=== PATIENT | female | born 1935 | race Caucasian/White ===

== ENCOUNTER 2021-08-28 11:54 | Emergency (ER) | payer OTHER ==
[2021-08-28 12:31] VITALS: TEMP 98.2; BMI 89.1
[2021-08-28 13:42] LABS: BASO % 0.5 % (0-2.0); EOS % 2.7 % (0-4.5); HEMATOCRIT 41.5 % (32.4-45.2); HEMOGLOBIN 13.8 GM/dL (10.7-15.3); LYMPH % 19.6 % (8-40); MCH 28.1 pg (25.7-33.7); MCHC 33.3 g/dl (32.0-36.0); MEAN CELL VOLUME 84.5 fl (80-96); MEAN PLT VOLUME 9.1 fl (7.5-11.1); MONO % 8.8 % (3.8-10.2); NEUT % 68.4 % (42.8-82.8); PLATELET COUNT 133 10^3/uL (134-434); RBC 4.91 M/mm3 (3.60-5.2); RDW 14.8 % (11.6-15.6); WHITE BLOOD COUNT 6.6 K/mm3 (4.0-10.0)
[2021-08-28 13:49] LABS: INR 0.92 (0.83-1.09); PROTHROMBIN TIME (PATIENT) 10.8 SEC (9.7-13.0)
[2021-08-28 13:52] LABS: ACTIVATED PTT 27.6 SECONDS (25.2-36.5)
[2021-08-28 14:19] LABS: CALCIUM 8.9 mg/dL (8.5-10.1)
[2021-08-28 14:20] LABS: ALBUMIN 2.8 g/dl (3.4-5.0); BLOOD UREA NITROGEN 14.7 mg/dL (7-18)
[2021-08-28 14:23] LABS: CREATININE 0.7 mg/dL (0.55-1.3)
[2021-08-28 14:24] LABS: BILIRUBIN,TOTAL 0.5 mg/dL (0.2-1); TOT PROT 7.1 g/dl (6.4-8.2)
[2021-08-28 17:11] VITALS: BP 178/86; PULSE 86
== END 2021-08-28 17:20 | disposition home or self-care (01) ==
LOC: JER 11:54
DX: K57.90 Diverticulosis of intestine, part unspecified, without perforation or abscess without bleeding (principal)
CPT/HCPCS: 36415; 74177-TC; 80053; 82272; 85025; 85610; 85730; 86850; 86900; 86901; 93005; 93010; 99283-25; C9803; U0003; U0005

== ENCOUNTER 2022-05-20 15:34 | Inpatient (IN) | payer OTHER ==
[2022-05-20 17:45] LABS: VENOUS BASE EXCESS 2.7 mmol/L (-2-2); VENOUS O2 SATURATION 40.3 % (70-80); VENOUS PCO2 46.9 mmHg (38-52); VENOUS PH 7.402 (7.310-7.410)
[2022-05-20] MEDS ORDERED: VANCOMYCIN 1 GM in D5W (PRE-DOCKED) 1,000 MG/250 ML IVPB ONE (17:45)
[2022-05-20] MEDS ORDERED: CEFEPIME HCL/D5W 2 GM/50 ML BAG IVPB ONE (17:45)
[2022-05-20 18:09] LABS: INR 1.32 (0.83-1.09); PROTHROMBIN TIME (PATIENT) 15.2 SEC (9.7-13.0)
[2022-05-20 18:10] LABS: BASO % 0.3 % (0-2.0); EOS % 0.4 % (0-4.5); HEMATOCRIT 41.7 % (32.4-45.2); HEMOGLOBIN 13.5 GM/dL (10.7-15.3); LYMPH % 12.7 % (8-40); MCH 26.6 pg (25.7-33.7); MCHC 32.3 g/dl (32.0-36.0); MEAN CELL VOLUME 82.5 fl (80-96); MEAN PLT VOLUME 9.2 fl (7.5-11.1); MONO % 6.2 % (3.8-10.2); NEUT % 80.4 % (42.8-82.8); PLATELET COUNT 205 10^3/uL (134-434); RBC 5.05 M/mm3 (3.60-5.2); RDW 15.2 % (11.6-15.6)
[2022-05-20 18:12] LABS: ACTIVATED PTT 33.1 SECONDS (25.2-36.5)
[2022-05-20 18:15] LABS: BLOOD UREA NITROGEN 19.2 mg/dL (7-18); CALCIUM 9.7 mg/dL (8.5-10.1)
[2022-05-20 18:16] LABS: ALBUMIN 2.8 g/dl (3.4-5.0)
[2022-05-20 18:18] LABS: CREATININE 0.6 mg/dL (0.55-1.3)
[2022-05-20 18:20] LABS: BILIRUBIN,TOTAL 0.7 mg/dL (0.2-1); TOT PROT 6.9 g/dl (6.4-8.2)
[2022-05-20] MEDS ORDERED: VANCOMYCIN 1 GRAM (PRE-DOCKED) 1,000 MG/250 ML BAG IVPB ONE (20:49)
[2022-05-20 21:22] LABS: EPI CELLS >36 /uL (0-25.1); HYALINE CASTS 35 /uL (0-3.1); URINE APPEARANCE TURBID; URINE BACTERIA >9,000 /uL (0-1359); URINE BILIRUBIN 1+ (NEGATIVE); URINE COLOR ORANGE; URINE GLUCOSE (UA) NEGATIVE (NEGATIVE); URINE KETONE 1+ (NEGATIVE); URINE LEUK ESTERASE 3+ (NEGATIVE); URINE NITRITE POSITIVE (NEGATIVE); URINE PROTEIN 3+ (NEGATIVE); URINE WBC 22398 /uL (0-25.8)
[2022-05-20 22:15] LABS: URINE RBC 10423 /uL (0-23.9); YEAST NEGATIVE (NEGATIVE)
[2022-05-20] MEDS ORDERED: CEFEPIME 2 GM/100 ML BAG IVPB ONE (22:26)
[2022-05-20] MEDS: APIXABAN 5 MG TABLET PO SCH (23:45)
[2022-05-20] MEDS: MEROPENEM 500 MG in DEXTROSE 5%-WATER 100 ML IVPB SCH (23:50)
[2022-05-21] MEDS ORDERED: APIXABAN 5 MG TABLET ONE (03:03)
[2022-05-21] MEDS ORDERED: MEROPENEM 500 MG VIAL (RESTRICTED TO ID) IVPB ONE ×2 (03:03→09:30)
[2022-05-21 05:29] VITALS: BMI 20.3
[2022-05-21 07:10] LABS: BASO % 0.5 % (0-2.0); EOS % 0.4 % (0-4.5); HEMATOCRIT 40.4 % (32.4-45.2); HEMOGLOBIN 13.2 GM/dL (10.7-15.3); LYMPH % 10.3 % (8-40); MCH 26.9 pg (25.7-33.7); MCHC 32.6 g/dl (32.0-36.0); MEAN CELL VOLUME 82.5 fl (80-96); MEAN PLT VOLUME 9.1 fl (7.5-11.1); MONO % 6.2 % (3.8-10.2); NEUT % 82.6 % (42.8-82.8); PLATELET COUNT 206 10^3/uL (134-434); RBC 4.89 M/mm3 (3.60-5.2); RDW 15.4 % (11.6-15.6); WHITE BLOOD COUNT 7.2 K/mm3 (4.0-10.0)
[2022-05-21 07:34] LABS: CALCIUM 9.5 mg/dL (8.5-10.1)
[2022-05-21 07:35] LABS: ALBUMIN 2.6 g/dl (3.4-5.0); BLOOD UREA NITROGEN 21.9 mg/dL (7-18); MAGNESIUM 2.4 mg/dL (1.8-2.4)
[2022-05-21 07:36] LABS: PHOSPHOROUS 3.5 mg/dL (2.5-4.9)
[2022-05-21 07:38] LABS: BILIRUBIN,TOTAL 0.7 mg/dL (0.2-1); CREATININE 0.6 mg/dL (0.55-1.3); TOT PROT 6.3 g/dl (6.4-8.2)
[2022-05-21] MEDS ORDERED: DEXTROSE 5%-WATER 100 ML IVPB ONE (09:30)
[2022-05-21] MEDS: amLODIPine BESYLATE 5 MG TABLET (FP) PO SCH (09:34)
[2022-05-21] MEDS: APIXABAN 5 MG TABLET PO SCH ×2 (09:34→21:20)
[2022-05-21] MEDS: EZETIMIBE 10 MG TABLET (FP) PO SCH (09:34)
[2022-05-21] MEDS: LOSARTAN POTASSIUM 25 MG TABLET PO SCH (09:34)
[2022-05-21] MEDS: MEROPENEM 500 MG in DEXTROSE 5%-WATER 100 ML IVPB SCH (09:35)
[2022-05-21] MEDS ORDERED: ACETAMINOPHEN 325 MG TABLET (FP) PO PRN (14:07)
[2022-05-21] MEDS ORDERED: VANCOMYCIN 1 GM in D5W (PRE-DOCKED) 1,000 MG/250 ML IVPB SCH (20:00)
[2022-05-21] MEDS: DONEPEZIL HCL 10 MG TABLET (FP) PO SCH (21:20)
[2022-05-21] MEDS: VANCOMYCIN 1 GRAM (PRE-DOCKED) 1,000 MG/250 ML BAG IVPB SCH (21:20)
[2022-05-21] MEDS ORDERED: MEROPENEM 500 MG in DEXTROSE 5%-WATER 100 ML IVPB SCH (22:00)
[2022-05-22] MEDS ORDERED: DEXTROSE 5%-WATER 100 ML IVPB ONE (09:37)
[2022-05-22] MEDS: LOSARTAN POTASSIUM 25 MG TABLET PO SCH (09:52)
[2022-05-22] MEDS: APIXABAN 5 MG TABLET PO SCH ×2 (09:52→21:35)
[2022-05-22] MEDS: amLODIPine BESYLATE 5 MG TABLET (FP) PO SCH (09:52)
[2022-05-22] MEDS: CEFTRIAXONE 2 GM in DEXTROSE 5%-WATER 100 ML IVPB SCH (09:52)
[2022-05-22] MEDS: EZETIMIBE 10 MG TABLET (FP) PO SCH (09:52)
[2022-05-22] MEDS: AMINO ACIDS/PROTEIN HYDROLYS 30 ML LIQUID.PKT PO SCH (19:11)
[2022-05-22] MEDS ORDERED: VANCOMYCIN 1 GM in D5W (PRE-DOCKED) 1,000 MG/250 ML IVPB SCH (20:00)
[2022-05-22] MEDS: VANCOMYCIN 1 GRAM (PRE-DOCKED) 1,000 MG/250 ML BAG IVPB SCH (20:34)
[2022-05-22] MEDS: DONEPEZIL HCL 10 MG TABLET (FP) PO SCH (21:35)
[2022-05-23] MEDS: AMINO ACIDS/PROTEIN HYDROLYS 30 ML LIQUID.PKT PO SCH ×2 (08:45→17:02)
[2022-05-23] MEDS ORDERED: DEXTROSE 5%-WATER 100 ML IVPB ONE (10:12)
[2022-05-23] MEDS: amLODIPine BESYLATE 5 MG TABLET (FP) PO SCH (10:17)
[2022-05-23] MEDS: EZETIMIBE 10 MG TABLET (FP) PO SCH (10:17)
[2022-05-23] MEDS: ASCORBIC ACID 500 MG TABLET (FP) PO SCH (10:17)
[2022-05-23] MEDS: MULTIVITAMINS (DAILY MVI) TABLET (FP) PO SCH (10:17)
[2022-05-23] MEDS: APIXABAN 5 MG TABLET PO SCH ×2 (10:17→21:02)
[2022-05-23] MEDS: LOSARTAN POTASSIUM 25 MG TABLET PO SCH (10:17)
[2022-05-23] MEDS: CEFTRIAXONE 2 GM in DEXTROSE 5%-WATER 100 ML IVPB SCH (10:18)
[2022-05-23] MEDS: VANCOMYCIN 1 GRAM (PRE-DOCKED) 1,000 MG/250 ML BAG IVPB SCH (20:52)
[2022-05-23] MEDS: DONEPEZIL HCL 10 MG TABLET (FP) PO SCH (21:02)
[2022-05-24] MEDS: AMINO ACIDS/PROTEIN HYDROLYS 30 ML LIQUID.PKT PO SCH ×2 (08:16→17:12)
[2022-05-24] MEDS ORDERED: DEXTROSE 5%-WATER 100 ML IVPB ONE (09:01)
[2022-05-24] MEDS: CEFTRIAXONE 2 GM in DEXTROSE 5%-WATER 100 ML IVPB SCH (09:15)
[2022-05-24] MEDS: MULTIVITAMINS (DAILY MVI) TABLET (FP) PO SCH (09:16)
[2022-05-24] MEDS: EZETIMIBE 10 MG TABLET (FP) PO SCH (09:16)
[2022-05-24] MEDS: APIXABAN 5 MG TABLET PO SCH ×2 (09:16→22:05)
[2022-05-24] MEDS: ASCORBIC ACID 500 MG TABLET (FP) PO SCH (09:16)
[2022-05-24] MEDS: LOSARTAN POTASSIUM 25 MG TABLET PO SCH (11:46)
[2022-05-24] MEDS: amLODIPine BESYLATE 5 MG TABLET (FP) PO SCH (11:47)
[2022-05-24 17:52] LABS: BASO % 0.2 % (0-2.0); HEMATOCRIT 36.6 % (32.4-45.2); HEMOGLOBIN 11.9 GM/dL (10.7-15.3); LYMPH % 13.4 % (8-40); MCH 26.7 pg (25.7-33.7); MCHC 32.6 g/dl (32.0-36.0); MEAN CELL VOLUME 81.9 fl (80-96); MEAN PLT VOLUME 8.9 fl (7.5-11.1); MONO % 7.5 % (3.8-10.2); NEUT % 77.9 % (42.8-82.8); PLATELET COUNT 209 10^3/uL (134-434); RBC 4.47 M/mm3 (3.60-5.2); WHITE BLOOD COUNT 5.7 K/mm3 (4.0-10.0)
[2022-05-24 18:35] LABS: ALBUMIN 2.2 g/dl (3.4-5.0); BILIRUBIN,TOTAL 0.3 mg/dL (0.2-1); BLOOD UREA NITROGEN 13.2 mg/dL (7-18); CALCIUM 8.3 mg/dL (8.5-10.1); CREATININE 0.5 mg/dL (0.55-1.3); MAGNESIUM 2.1 mg/dL (1.8-2.4); PHOSPHOROUS 2.5 mg/dL (2.5-4.9); TOT PROT 5.4 g/dl (6.4-8.2)
[2022-05-24] MEDS: VANCOMYCIN 1 GRAM (PRE-DOCKED) 1,000 MG/250 ML BAG IVPB SCH (20:42)
[2022-05-24] MEDS: DONEPEZIL HCL 10 MG TABLET (FP) PO SCH (22:05)
[2022-05-25] MEDS: AMINO ACIDS/PROTEIN HYDROLYS 30 ML LIQUID.PKT PO SCH ×2 (08:37→17:05)
[2022-05-25] MEDS ORDERED: DEXTROSE 5%-WATER 100 ML IVPB ONE ×2 (09:11→09:28)
[2022-05-25] MEDS: MULTIVITAMINS (DAILY MVI) TABLET (FP) PO SCH (09:17)
[2022-05-25] MEDS: ASCORBIC ACID 500 MG TABLET (FP) PO SCH (09:17)
[2022-05-25] MEDS: amLODIPine BESYLATE 5 MG TABLET (FP) PO SCH (09:17)
[2022-05-25] MEDS: EZETIMIBE 10 MG TABLET (FP) PO SCH (09:17)
[2022-05-25] MEDS: LOSARTAN POTASSIUM 25 MG TABLET PO SCH (09:17)
[2022-05-25] MEDS: CEFTRIAXONE 2 GM in DEXTROSE 5%-WATER 100 ML IVPB SCH (10:13)
[2022-05-25] MEDS: APIXABAN 5 MG TABLET PO SCH ×3 (11:35→21:16)
[2022-05-25 12:49] LABS: BASO % 0.4 % (0-2.0); HEMATOCRIT 33.6 % (32.4-45.2); HEMOGLOBIN 11.3 GM/dL (10.7-15.3); LYMPH % 27.9 % (8-40); MCH 27.1 pg (25.7-33.7); MCHC 33.5 g/dl (32.0-36.0); MEAN CELL VOLUME 80.8 fl (80-96); MEAN PLT VOLUME 8.7 fl (7.5-11.1); MONO % 9.8 % (3.8-10.2); NEUT % 59.9 % (42.8-82.8); PLATELET COUNT 199 10^3/uL (134-434); RBC 4.16 M/mm3 (3.60-5.2); RDW 15.9 % (11.6-15.6); WHITE BLOOD COUNT 4.4 K/mm3 (4.0-10.0)
[2022-05-25 17:27] LABS: ALBUMIN 2.2 g/dl (3.4-5.0); BILIRUBIN,TOTAL 0.6 mg/dL (0.2-1); BLOOD UREA NITROGEN 10.7 mg/dL (7-18); CALCIUM 8.9 mg/dL (8.5-10.1); CREATININE 0.3 mg/dL (0.55-1.3); MAGNESIUM 2.2 mg/dL (1.8-2.4); PHOSPHOROUS 2.8 mg/dL (2.5-4.9); TOT PROT 5.1 g/dl (6.4-8.2)
[2022-05-25] MEDS: VANCOMYCIN 1 GRAM (PRE-DOCKED) 1,000 MG/250 ML BAG IVPB SCH (21:15)
[2022-05-25] MEDS: DONEPEZIL HCL 10 MG TABLET (FP) PO SCH (21:16)
[2022-05-26] MEDS ORDERED: INSULIN (NOVOLOG) ASPART 100 UNITS/ML 10ML VIAL ONE (06:51)
[2022-05-26] MEDS: AMINO ACIDS/PROTEIN HYDROLYS 30 ML LIQUID.PKT PO SCH ×3 (08:41→17:16)
[2022-05-26] MEDS ORDERED: DEXTROSE 5%-WATER 100 ML IVPB ONE (09:20)
[2022-05-26] MEDS: CEFTRIAXONE 2 GM in DEXTROSE 5%-WATER 100 ML IVPB SCH (09:47)
[2022-05-26] MEDS: MULTIVITAMINS (DAILY MVI) TABLET (FP) PO SCH ×2 (09:48→14:47)
[2022-05-26] MEDS: APIXABAN 5 MG TABLET PO SCH ×3 (09:48→21:45)
[2022-05-26] MEDS: ASCORBIC ACID 500 MG TABLET (FP) PO SCH ×2 (09:48→14:47)
[2022-05-26] MEDS: LOSARTAN POTASSIUM 25 MG TABLET PO SCH ×2 (09:48→14:48)
[2022-05-26] MEDS: EZETIMIBE 10 MG TABLET (FP) PO SCH ×2 (09:48→14:47)
[2022-05-26] MEDS: amLODIPine BESYLATE 5 MG TABLET (FP) PO SCH ×2 (09:48→14:48)
[2022-05-26] MEDS: VANCOMYCIN 1 GRAM (PRE-DOCKED) 1,000 MG/250 ML BAG IVPB SCH (20:00)
[2022-05-26] MEDS: DONEPEZIL HCL 10 MG TABLET (FP) PO SCH (21:45)
[2022-05-27] MEDS: AMINO ACIDS/PROTEIN HYDROLYS 30 ML LIQUID.PKT PO SCH ×2 (08:10→17:11)
[2022-05-27] MEDS ORDERED: REGADENOSON 0.4 MG/5 ML PRE-FILLED SYRINGE IVPUSH ONE ×2 (09:24→09:45)
[2022-05-27] MEDS ORDERED: APIXABAN 5 MG TABLET PO SCH (10:18)
[2022-05-27] MEDS: LOSARTAN POTASSIUM 25 MG TABLET PO SCH (11:01)
[2022-05-27] MEDS: amLODIPine BESYLATE 5 MG TABLET (FP) PO SCH (11:01)
[2022-05-27] MEDS: ASCORBIC ACID 500 MG TABLET (FP) PO SCH (11:01)
[2022-05-27] MEDS: EZETIMIBE 10 MG TABLET (FP) PO SCH (11:01)
[2022-05-27] MEDS: MULTIVITAMINS (DAILY MVI) TABLET (FP) PO SCH (11:01)
[2022-05-27] MEDS: CEFTRIAXONE 2 GM in DEXTROSE 5%-WATER 100 ML IVPB SCH (11:04)
[2022-05-27] MEDS ORDERED: DEXTROSE 5%-WATER 100 ML IVPB ONE (21:25)
[2022-05-27] MEDS ORDERED: CEFEPIME HCL 1 GM VIAL (RESTRICTED TO ID) ONE (21:25)
[2022-05-27] MEDS: VANCOMYCIN 1 GRAM (PRE-DOCKED) 1,000 MG/250 ML BAG IVPB SCH (21:36)
[2022-05-27] MEDS: CEFEPIME 1 GM in DEXTROSE 5%-WATER 1 GM/100 ML BAG IVPB SCH (23:05)
[2022-05-27] MEDS: DONEPEZIL HCL 10 MG TABLET (FP) PO SCH (23:05)
[2022-05-28] MEDS ORDERED: CEFEPIME HCL 1 GM VIAL (RESTRICTED TO ID) ONE ×2 (09:08→21:37)
[2022-05-28] MEDS ORDERED: DEXTROSE 5%-WATER 100 ML IVPB ONE ×2 (09:08→21:37)
[2022-05-28] MEDS: LOSARTAN POTASSIUM 25 MG TABLET PO SCH (09:10)
[2022-05-28] MEDS: CEFEPIME 1 GM in DEXTROSE 5%-WATER 1 GM/100 ML BAG IVPB SCH ×2 (09:10→21:46)
[2022-05-28] MEDS: amLODIPine BESYLATE 5 MG TABLET (FP) PO SCH (09:10)
[2022-05-28] MEDS: ASCORBIC ACID 500 MG TABLET (FP) PO SCH (09:12)
[2022-05-28] MEDS: MULTIVITAMINS (DAILY MVI) TABLET (FP) PO SCH (09:12)
[2022-05-28] MEDS: EZETIMIBE 10 MG TABLET (FP) PO SCH (09:12)
[2022-05-28] MEDS: AMINO ACIDS/PROTEIN HYDROLYS 30 ML LIQUID.PKT PO SCH ×2 (09:12→17:42)
[2022-05-28] MEDS ORDERED: LIDOCAINE HCL 1%, 10 MG/ML (20ML VIAL) ONE (18:04)
[2022-05-28] MEDS ORDERED: HEPARIN NA (PORCINE) 5,000 UNITS/ML 1ML VIAL ONE (18:05)
[2022-05-28] MEDS ORDERED: MIDAZOLAM HCL 2 MG/2 ML SINGLE DOSE VIAL ONE (18:32)
[2022-05-28] MEDS ORDERED: LIDOCAINE HCL 1%, 10 MG/ML (20ML VIAL) NR ONE (18:49)
[2022-05-28] MEDS ORDERED: ONDANSETRON 4 MG/2 ML VIAL IVPUSH PRN ×2 (19:17→20:28)
[2022-05-28] MEDS ORDERED: LACTATED RINGERS SOLUTION 1,000 ML IV SCH ×2 (19:30→20:28)
[2022-05-28] MEDS ORDERED: ACETAMINOPHEN 325 MG TABLET (FP) PO PRN (20:28)
[2022-05-28] MEDS: VANCOMYCIN 1 GRAM (PRE-DOCKED) 1,000 MG/250 ML BAG IVPB SCH (21:04)
[2022-05-28] MEDS: DONEPEZIL HCL 10 MG TABLET (FP) PO SCH (21:46)
[2022-05-29] MEDS: AMINO ACIDS/PROTEIN HYDROLYS 30 ML LIQUID.PKT PO SCH ×3 (08:17→17:40)
[2022-05-29] MEDS ORDERED: DEXTROSE 5%-WATER 100 ML IVPB ONE ×2 (09:02→21:12)
[2022-05-29] MEDS ORDERED: CEFEPIME HCL 1 GM VIAL (RESTRICTED TO ID) ONE ×2 (09:02→21:12)
[2022-05-29] MEDS: CEFEPIME 1 GM in DEXTROSE 5%-WATER 1 GM/100 ML BAG IVPB SCH ×2 (09:05→21:19)
[2022-05-29] MEDS: APIXABAN 2.5 MG TABLET PO SCH ×3 (09:05→21:40)
[2022-05-29] MEDS: ASCORBIC ACID 500 MG TABLET (FP) PO SCH (09:05)
[2022-05-29] MEDS: amLODIPine BESYLATE 5 MG TABLET (FP) PO SCH (09:05)
[2022-05-29] MEDS: EZETIMIBE 10 MG TABLET (FP) PO SCH (09:05)
[2022-05-29] MEDS: LOSARTAN POTASSIUM 25 MG TABLET PO SCH (09:05)
[2022-05-29] MEDS: MULTIVITAMINS (DAILY MVI) TABLET (FP) PO SCH (09:05)
[2022-05-29 12:01] LABS: BASO % 0.6 % (0-2.0); EOS % 2.4 % (0-4.5); HEMATOCRIT 34.9 % (32.4-45.2); HEMOGLOBIN 11.7 GM/dL (10.7-15.3); LYMPH % 20.9 % (8-40); MCH 27.3 pg (25.7-33.7); MCHC 33.5 g/dl (32.0-36.0); MEAN CELL VOLUME 81.5 fl (80-96); MEAN PLT VOLUME 8.5 fl (7.5-11.1); MONO % 8.2 % (3.8-10.2); NEUT % 67.9 % (42.8-82.8); PLATELET COUNT 202 10^3/uL (134-434); RBC 4.28 M/mm3 (3.60-5.2); RDW 16.1 % (11.6-15.6); WHITE BLOOD COUNT 4.3 K/mm3 (4.0-10.0)
[2022-05-29 12:44] LABS: CALCIUM 8.5 mg/dL (8.5-10.1)
[2022-05-29 12:45] LABS: BLOOD UREA NITROGEN 7.6 mg/dL (7-18)
[2022-05-29 12:46] LABS: CREATININE 0.3 mg/dL (0.55-1.3)
[2022-05-29 12:48] LABS: PHOSPHOROUS 3.1 mg/dL (2.5-4.9)
[2022-05-29] MEDS: DONEPEZIL HCL 10 MG TABLET (FP) PO SCH ×2 (21:19→21:41)
[2022-05-29] MEDS: VANCOMYCIN 1 GRAM (PRE-DOCKED) 1,000 MG/250 ML BAG IVPB SCH (21:40)
[2022-05-30] MEDS ORDERED: CEFEPIME HCL 1 GM VIAL (RESTRICTED TO ID) ONE ×2 (09:11→23:11)
[2022-05-30] MEDS ORDERED: DEXTROSE 5%-WATER 100 ML IVPB ONE ×2 (09:11→23:11)
[2022-05-30] MEDS: CEFEPIME 1 GM in DEXTROSE 5%-WATER 1 GM/100 ML BAG IVPB SCH ×2 (10:12→23:12)
[2022-05-30] MEDS: MULTIVITAMINS (DAILY MVI) TABLET (FP) PO SCH (10:16)
[2022-05-30] MEDS: AMINO ACIDS/PROTEIN HYDROLYS 30 ML LIQUID.PKT PO SCH ×2 (10:16→18:10)
[2022-05-30] MEDS: ASCORBIC ACID 500 MG TABLET (FP) PO SCH (10:17)
[2022-05-30] MEDS: LOSARTAN POTASSIUM 25 MG TABLET PO SCH (10:17)
[2022-05-30] MEDS: EZETIMIBE 10 MG TABLET (FP) PO SCH (10:17)
[2022-05-30] MEDS: APIXABAN 2.5 MG TABLET PO SCH ×2 (10:17→21:15)
[2022-05-30] MEDS: amLODIPine BESYLATE 5 MG TABLET (FP) PO SCH (10:17)
[2022-05-30] MEDS ORDERED: VANCOMYCIN/WATER FOR INJ (PEG) 1,000 MG/250 ML BAG IVPB SCH (20:52)
[2022-05-30] MEDS: DONEPEZIL HCL 10 MG TABLET (FP) PO SCH (21:15)
[2022-05-30] MEDS: VANCOMYCIN/WATER FOR INJ (PEG) 1,000 MG/200 ML BAG IVPB SCH (21:15)
[2022-05-31] MEDS ORDERED: DEXTROSE 5%-WATER 100 ML IVPB ONE (08:56)
[2022-05-31] MEDS ORDERED: CEFEPIME HCL 1 GM VIAL (RESTRICTED TO ID) ONE (08:56)
[2022-05-31] MEDS: ASCORBIC ACID 500 MG TABLET (FP) PO SCH (09:42)
[2022-05-31] MEDS: APIXABAN 2.5 MG TABLET PO SCH ×2 (09:42→22:23)
[2022-05-31] MEDS: AMINO ACIDS/PROTEIN HYDROLYS 30 ML LIQUID.PKT PO SCH ×2 (09:42→17:59)
[2022-05-31] MEDS: LOSARTAN POTASSIUM 25 MG TABLET PO SCH (09:42)
[2022-05-31] MEDS: EZETIMIBE 10 MG TABLET (FP) PO SCH (09:42)
[2022-05-31] MEDS: MULTIVITAMINS (DAILY MVI) TABLET (FP) PO SCH (09:42)
[2022-05-31] MEDS: CEFEPIME 1 GM in DEXTROSE 5%-WATER 1 GM/100 ML BAG IVPB SCH (09:43)
[2022-05-31] MEDS: amLODIPine BESYLATE 5 MG TABLET (FP) PO SCH (09:43)
[2022-05-31] MEDS: VANCOMYCIN/WATER FOR INJ (PEG) 1,000 MG/200 ML BAG IVPB SCH (22:20)
[2022-05-31] MEDS: DONEPEZIL HCL 10 MG TABLET (FP) PO SCH (22:23)
[2022-06-01] MEDS ORDERED: CEFEPIME HCL 1 GM VIAL (RESTRICTED TO ID) ONE ×3 (00:16→22:13)
[2022-06-01] MEDS ORDERED: DEXTROSE 5%-WATER 100 ML IVPB ONE ×3 (00:16→22:13)
[2022-06-01] MEDS: CEFEPIME 1 GM in DEXTROSE 5%-WATER 1 GM/100 ML BAG IVPB SCH ×3 (00:19→22:19)
[2022-06-01] MEDS: VANCOMYCIN 1 GRAM (PRE-DOCKED) 1,000 MG/250 ML BAG IVPB SCH (07:14)
[2022-06-01] MEDS: AMINO ACIDS/PROTEIN HYDROLYS 30 ML LIQUID.PKT PO SCH ×3 (08:40→17:31)
[2022-06-01] MEDS: APIXABAN 2.5 MG TABLET PO SCH ×2 (10:44→22:23)
[2022-06-01] MEDS: ASCORBIC ACID 500 MG TABLET (FP) PO SCH (10:44)
[2022-06-01] MEDS: amLODIPine BESYLATE 5 MG TABLET (FP) PO SCH (10:44)
[2022-06-01] MEDS: LOSARTAN POTASSIUM 25 MG TABLET PO SCH (10:44)
[2022-06-01] MEDS: EZETIMIBE 10 MG TABLET (FP) PO SCH (10:44)
[2022-06-01] MEDS: MULTIVITAMINS (DAILY MVI) TABLET (FP) PO SCH (10:44)
[2022-06-01] MEDS: DONEPEZIL HCL 10 MG TABLET (FP) PO SCH (22:23)
[2022-06-01] MEDS: VANCOMYCIN/WATER FOR INJ (PEG) 1,000 MG/200 ML BAG IVPB SCH (22:23)
[2022-06-02] MEDS: AMINO ACIDS/PROTEIN HYDROLYS 30 ML LIQUID.PKT PO SCH ×2 (07:09→16:48)
[2022-06-02] MEDS ORDERED: DEXTROSE 5%-WATER 100 ML IVPB ONE ×2 (09:20→21:09)
[2022-06-02] MEDS ORDERED: CEFEPIME HCL 1 GM VIAL (RESTRICTED TO ID) ONE ×2 (09:20→21:08)
[2022-06-02] MEDS: CEFEPIME 1 GM in DEXTROSE 5%-WATER 1 GM/100 ML BAG IVPB SCH ×2 (09:24→21:34)
[2022-06-02] MEDS: amLODIPine BESYLATE 5 MG TABLET (FP) PO SCH ×2 (09:25→10:03)
[2022-06-02] MEDS: LOSARTAN POTASSIUM 25 MG TABLET PO SCH ×2 (09:25→10:03)
[2022-06-02] MEDS: MULTIVITAMINS (DAILY MVI) TABLET (FP) PO SCH (10:02)
[2022-06-02] MEDS: EZETIMIBE 10 MG TABLET (FP) PO SCH (10:02)
[2022-06-02] MEDS: ASCORBIC ACID 500 MG TABLET (FP) PO SCH (10:02)
[2022-06-02 11:01] LABS: HEMATOCRIT 36.1 % (32.4-45.2); HEMOGLOBIN 11.8 GM/dL (10.7-15.3); MCH 26.8 pg (25.7-33.7); MCHC 32.6 g/dl (32.0-36.0); MEAN CELL VOLUME 82.3 fl (80-96); MEAN PLT VOLUME 9.1 fl (7.5-11.1); PLATELET COUNT 165 10^3/uL (134-434); RBC 4.39 M/mm3 (3.60-5.2); RDW 16.4 % (11.6-15.6); WHITE BLOOD COUNT 4.5 K/mm3 (4.0-10.0)
[2022-06-02 11:46] LABS: ANISOCYTOSIS 0; HELMET CELLS 0; HOWELL-JOLLY BODIES 0; MACROCYTOSIS 0; OVALOCYTE 0; ROULEAU 0; SICKELED CELLS 0; TARGET CELLS 0; TEAR DROP CELLS 0; TOXIC GRANULATION 0
[2022-06-02 13:18] LABS: CALCIUM 8.4 mg/dL (8.5-10.1)
[2022-06-02 13:19] LABS: BLOOD UREA NITROGEN 5.3 mg/dL (7-18); MAGNESIUM 2.1 mg/dL (1.8-2.4); PHOSPHOROUS 2.6 mg/dL (2.5-4.9)
[2022-06-02 13:22] LABS: CREATININE 0.3 mg/dL (0.55-1.3)
[2022-06-02] MEDS: KCL 10 MEQ IVPB 10 MEQ/100 ML INFUS.BAG IVPB SCH ×3 (13:45→15:12)
[2022-06-02] MEDS ORDERED: GENTAMICIN SO4 80 MG/2 ML VIAL ONE (15:31)
[2022-06-02] MEDS ORDERED: LIDOCAINE HCL 2% (20ML MULTI-DOSE VIAL) ONE (15:31)
[2022-06-02] MEDS ORDERED: PROPOFOL 20 ML ONE ×2 (16:10→16:59)
[2022-06-02] MEDS ORDERED: VANCOMYCIN 1,000 MG VIAL (RESTRICTED TO ID ONLY) ONE ×2 (16:27→16:50)
[2022-06-02] MEDS ORDERED: LACTATED RINGERS SOLUTION 1,000 ML IV SCH (18:00)
[2022-06-02] MEDS ORDERED: VANCOMYCIN/WATER FOR INJ (PEG) 1,000 MG/200 ML BAG IVPB SCH (19:00)
[2022-06-02] MEDS: LACTATED RINGERS SOLUTION 1,000 ML IV SCH (20:10)
[2022-06-02] MEDS: VANCOMYCIN/WATER FOR INJ (PEG) 1,000 MG/200 ML BAG IVPB SCH (20:45)
[2022-06-02] MEDS: DONEPEZIL HCL 10 MG TABLET (FP) PO SCH (21:17)
[2022-06-02] MEDS: APIXABAN 2.5 MG TABLET PO SCH (21:17)
[2022-06-03] MEDS: LACTATED RINGERS SOLUTION 1,000 ML IV SCH ×3 (06:05→21:25)
[2022-06-03 09:44] LABS: BASO % 0.3 % (0-2.0); EOS % 0.3 % (0-4.5); HEMATOCRIT 29.2 % (32.4-45.2); HEMOGLOBIN 9.6 GM/dL (10.7-15.3); LYMPH % 18.4 % (8-40); MCH 27.2 pg (25.7-33.7); MEAN CELL VOLUME 82.7 fl (80-96); MEAN PLT VOLUME 9.7 fl (7.5-11.1); MONO % 6.7 % (3.8-10.2); NEUT % 74.3 % (42.8-82.8); PLATELET COUNT 155 10^3/uL (134-434); RBC 3.53 M/mm3 (3.60-5.2); RDW 16.7 % (11.6-15.6); WHITE BLOOD COUNT 6.8 K/mm3 (4.0-10.0)
[2022-06-03 10:09] LABS: CALCIUM 8.4 mg/dL (8.5-10.1); MAGNESIUM 1.8 mg/dL (1.8-2.4)
[2022-06-03 10:11] LABS: CREATININE 0.3 mg/dL (0.55-1.3); PHOSPHOROUS 2.8 mg/dL (2.5-4.9)
[2022-06-03] MEDS: AMINO ACIDS/PROTEIN HYDROLYS 30 ML LIQUID.PKT PO SCH ×2 (14:30→18:06)
[2022-06-03] MEDS: LOSARTAN POTASSIUM 25 MG TABLET PO SCH (14:31)
[2022-06-03] MEDS: APIXABAN 2.5 MG TABLET PO SCH ×2 (14:31→21:16)
[2022-06-03] MEDS: amLODIPine BESYLATE 5 MG TABLET (FP) PO SCH (14:31)
[2022-06-03] MEDS: EZETIMIBE 10 MG TABLET (FP) PO SCH (14:31)
[2022-06-03] MEDS: ASCORBIC ACID 500 MG TABLET (FP) PO SCH (14:31)
[2022-06-03] MEDS: MULTIVITAMINS (DAILY MVI) TABLET (FP) PO SCH (14:32)
[2022-06-03] MEDS ORDERED: DEXTROSE 5%-WATER 100 ML IVPB ONE ×2 (14:39→22:12)
[2022-06-03] MEDS ORDERED: CEFEPIME HCL 1 GM VIAL (RESTRICTED TO ID) ONE ×2 (14:39→22:12)
[2022-06-03] MEDS: CEFEPIME 1 GM in DEXTROSE 5%-WATER 1 GM/100 ML BAG IVPB SCH ×2 (14:41→22:54)
[2022-06-03] MEDS: VANCOMYCIN/WATER FOR INJ (PEG) 1,000 MG/200 ML BAG IVPB SCH (21:15)
[2022-06-03] MEDS: DONEPEZIL HCL 10 MG TABLET (FP) PO SCH (21:16)
[2022-06-04] MEDS: AMINO ACIDS/PROTEIN HYDROLYS 30 ML LIQUID.PKT PO SCH ×3 (09:15→16:43)
[2022-06-04 09:16] LABS: BLOOD UREA NITROGEN 6.9 mg/dL (7-18); CALCIUM 8.3 mg/dL (8.5-10.1); MAGNESIUM 1.8 mg/dL (1.8-2.4)
[2022-06-04] MEDS ORDERED: DEXTROSE 5%-WATER 100 ML IVPB ONE ×2 (09:19→20:40)
[2022-06-04] MEDS ORDERED: CEFEPIME HCL 1 GM VIAL (RESTRICTED TO ID) ONE ×2 (09:19→20:40)
[2022-06-04 09:20] LABS: CREATININE 0.2 mg/dL (0.55-1.3); PHOSPHOROUS 2.3 mg/dL (2.5-4.9)
[2022-06-04 09:28] LABS: BASO % 0.3 % (0-2.0); EOS % 1.3 % (0-4.5); HEMATOCRIT 25.4 % (32.4-45.2); HEMOGLOBIN 8.2 GM/dL (10.7-15.3); LYMPH % 28.8 % (8-40); MCH 26.8 pg (25.7-33.7); MCHC 32.4 g/dl (32.0-36.0); MEAN CELL VOLUME 82.5 fl (80-96); MEAN PLT VOLUME 9.1 fl (7.5-11.1); MONO % 10.2 % (3.8-10.2); NEUT % 59.4 % (42.8-82.8); PLATELET COUNT 137 10^3/uL (134-434); RBC 3.08 M/mm3 (3.60-5.2); RDW 16.3 % (11.6-15.6); WHITE BLOOD COUNT 4.8 K/mm3 (4.0-10.0)
[2022-06-04] MEDS: CEFEPIME 1 GM in DEXTROSE 5%-WATER 1 GM/100 ML BAG IVPB SCH ×2 (09:30→22:37)
[2022-06-04] MEDS: LOSARTAN POTASSIUM 25 MG TABLET PO SCH ×2 (09:30→10:15)
[2022-06-04] MEDS: ASCORBIC ACID 500 MG TABLET (FP) PO SCH ×2 (09:30→10:17)
[2022-06-04] MEDS: APIXABAN 2.5 MG TABLET PO SCH ×4 (09:30→21:08)
[2022-06-04] MEDS: amLODIPine BESYLATE 5 MG TABLET (FP) PO SCH ×2 (09:31→10:16)
[2022-06-04] MEDS: MULTIVITAMINS (DAILY MVI) TABLET (FP) PO SCH ×2 (09:31→10:16)
[2022-06-04] MEDS: EZETIMIBE 10 MG TABLET (FP) PO SCH ×2 (09:31→10:18)
[2022-06-04] MEDS ORDERED: POTASSIUM PHOSPHATE 30 MM in SODIUM CHLORIDE 500 ML IVPB ONE (11:30)
[2022-06-04] MEDS: KCL 10 MEQ IVPB 10 MEQ/100 ML INFUS.BAG IVPB SCH ×3 (11:56→13:29)
[2022-06-04] MEDS: LACTATED RINGERS SOLUTION 1,000 ML/1,000 ML INFUS.BAG IV SCH (12:09)
[2022-06-04] MEDS: VANCOMYCIN/WATER FOR INJ (PEG) 1,000 MG/200 ML BAG IVPB SCH (20:44)
[2022-06-04] MEDS: LACTATED RINGERS SOLUTION 1,000 ML IV SCH (20:44)
[2022-06-04] MEDS: DONEPEZIL HCL 10 MG TABLET (FP) PO SCH ×2 (21:06→21:08)
[2022-06-05] MEDS: LACTATED RINGERS SOLUTION 1,000 ML/1,000 ML INFUS.BAG IV SCH ×2 (05:41→10:21)
[2022-06-05 06:00] LABS: EPI CELLS 8 /uL (0-25.1); HYALINE CASTS 1 /uL (0-3.1); PH,URINE 5.5 (5.0-8.0); URINE APPEARANCE CLOUDY; URINE BACTERIA 9 /uL (0-1359); URINE BILIRUBIN NEGATIVE (NEGATIVE); URINE COLOR YELLOW; URINE GLUCOSE (UA) NEGATIVE (NEGATIVE); URINE KETONE 2+ (NEGATIVE); URINE LEUK ESTERASE 1+ (NEGATIVE); URINE NITRITE NEGATIVE (NEGATIVE); URINE PROTEIN NEGATIVE (NEGATIVE); URINE RBC 7 /uL (0-23.9); URINE UROBILINOGEN 0.2 mg/dL (0.2-1.0); URINE WBC 10 /uL (0-25.8)
[2022-06-05 07:45] LABS: URINE CRYSTALS NEGATIVE /hpf; YEAST NEGATIVE (NEGATIVE)
[2022-06-05] MEDS: AMINO ACIDS/PROTEIN HYDROLYS 30 ML LIQUID.PKT PO SCH ×2 (08:28→17:21)
[2022-06-05] MEDS ORDERED: DEXTROSE 5%-WATER 100 ML IVPB ONE ×2 (09:19→22:07)
[2022-06-05] MEDS ORDERED: CEFEPIME HCL 1 GM VIAL (RESTRICTED TO ID) ONE ×2 (09:19→22:07)
[2022-06-05] MEDS: ASCORBIC ACID 500 MG TABLET (FP) PO SCH (09:29)
[2022-06-05] MEDS: amLODIPine BESYLATE 5 MG TABLET (FP) PO SCH (09:29)
[2022-06-05] MEDS: APIXABAN 2.5 MG TABLET PO SCH ×2 (09:29→21:56)
[2022-06-05] MEDS: CEFEPIME 1 GM in DEXTROSE 5%-WATER 1 GM/100 ML BAG IVPB SCH ×2 (09:30→22:57)
[2022-06-05] MEDS: MULTIVITAMINS (DAILY MVI) TABLET (FP) PO SCH (09:30)
[2022-06-05] MEDS: EZETIMIBE 10 MG TABLET (FP) PO SCH (09:30)
[2022-06-05] MEDS: LOSARTAN POTASSIUM 25 MG TABLET PO SCH (09:30)
[2022-06-05 10:41] LABS: BASO % 0.3 % (0-2.0); EOS % 2.9 % (0-4.5); HEMATOCRIT 25.1 % (32.4-45.2); HEMOGLOBIN 8.2 GM/dL (10.7-15.3); LYMPH % 22.2 % (8-40); MCH 27.3 pg (25.7-33.7); MCHC 32.8 g/dl (32.0-36.0); MEAN CELL VOLUME 83.4 fl (80-96); MEAN PLT VOLUME 9.4 fl (7.5-11.1); MONO % 9.9 % (3.8-10.2); NEUT % 64.7 % (42.8-82.8); PLATELET COUNT 125 10^3/uL (134-434); RBC 3.01 M/mm3 (3.60-5.2); RDW 16.5 % (11.6-15.6)
[2022-06-05 11:06] LABS: CALCIUM 7.8 mg/dL (8.5-10.1)
[2022-06-05 11:07] LABS: BLOOD UREA NITROGEN 4.1 mg/dL (7-18); MAGNESIUM 1.6 mg/dL (1.8-2.4)
[2022-06-05 11:10] LABS: CREATININE 0.2 mg/dL (0.55-1.3); PHOSPHOROUS 2.3 mg/dL (2.5-4.9)
[2022-06-05] MEDS ORDERED: MAGNESIUM SULF 50% (8.12 MEQ/2 ML-1 GM VIAL) IVPB ONE (11:11)
[2022-06-05] MEDS ORDERED: POTASSIUM PHOSPHATE 30 MM in SODIUM CHLORIDE 500 ML IVPB ONE (11:11)
[2022-06-05] MEDS: VANCOMYCIN/WATER FOR INJ (PEG) 1,000 MG/200 ML BAG IVPB SCH (21:56)
[2022-06-05] MEDS: DONEPEZIL HCL 10 MG TABLET (FP) PO SCH (21:56)
[2022-06-06] MEDS: LACTATED RINGERS SOLUTION 1,000 ML/1,000 ML INFUS.BAG IV SCH ×2 (06:11→11:11)
[2022-06-06] MEDS ORDERED: DEXTROSE 5%-WATER 100 ML IVPB ONE ×2 (09:31→21:34)
[2022-06-06] MEDS ORDERED: CEFEPIME HCL 1 GM VIAL (RESTRICTED TO ID) ONE ×2 (09:31→21:34)
[2022-06-06] MEDS: MULTIVITAMINS (DAILY MVI) TABLET (FP) PO SCH (09:36)
[2022-06-06] MEDS: CEFEPIME 1 GM in DEXTROSE 5%-WATER 1 GM/100 ML BAG IVPB SCH ×2 (09:36→23:00)
[2022-06-06] MEDS: amLODIPine BESYLATE 5 MG TABLET (FP) PO SCH (09:36)
[2022-06-06] MEDS: EZETIMIBE 10 MG TABLET (FP) PO SCH (09:36)
[2022-06-06] MEDS: LOSARTAN POTASSIUM 25 MG TABLET PO SCH (09:36)
[2022-06-06] MEDS: APIXABAN 2.5 MG TABLET PO SCH ×2 (09:36→21:54)
[2022-06-06] MEDS: ASCORBIC ACID 500 MG TABLET (FP) PO SCH (09:37)
[2022-06-06] MEDS: AMINO ACIDS/PROTEIN HYDROLYS 30 ML LIQUID.PKT PO SCH ×2 (09:37→17:23)
[2022-06-06 10:00] LABS: BASO % 0.4 % (0-2.0); HEMATOCRIT 26.4 % (32.4-45.2); HEMOGLOBIN 8.8 GM/dL (10.7-15.3); LYMPH % 31.2 % (8-40); MCH 28.5 pg (25.7-33.7); MCHC 33.4 g/dl (32.0-36.0); MEAN CELL VOLUME 85.3 fl (80-96); MEAN PLT VOLUME 9.2 fl (7.5-11.1); MONO % 10.4 % (3.8-10.2); PLATELET COUNT 145 10^3/uL (134-434); RDW 16.5 % (11.6-15.6); WHITE BLOOD COUNT 4.3 K/mm3 (4.0-10.0)
[2022-06-06 10:10] LABS: BLOOD UREA NITROGEN 3.3 mg/dL (7-18); CALCIUM 8.2 mg/dL (8.5-10.1); MAGNESIUM 2.1 mg/dL (1.8-2.4)
[2022-06-06 10:14] LABS: CREATININE 0.2 mg/dL (0.55-1.3); PHOSPHOROUS 2.4 mg/dL (2.5-4.9)
[2022-06-06] MEDS: VANCOMYCIN/WATER FOR INJ (PEG) 1,000 MG/200 ML BAG IVPB SCH (21:54)
[2022-06-06] MEDS: DONEPEZIL HCL 10 MG TABLET (FP) PO SCH (21:54)
[2022-06-07] MEDS ORDERED: CEFEPIME HCL 1 GM VIAL (RESTRICTED TO ID) ONE ×3 (09:06→21:10)
[2022-06-07] MEDS ORDERED: DEXTROSE 5%-WATER 0 ML IVPB ONE (09:07)
[2022-06-07] MEDS: AMINO ACIDS/PROTEIN HYDROLYS 30 ML LIQUID.PKT PO SCH ×4 (09:11→17:09)
[2022-06-07] MEDS: MULTIVITAMINS (DAILY MVI) TABLET (FP) PO SCH (09:11)
[2022-06-07] MEDS: LOSARTAN POTASSIUM 25 MG TABLET PO SCH (09:11)
[2022-06-07] MEDS: APIXABAN 2.5 MG TABLET PO SCH ×2 (09:11→21:27)
[2022-06-07] MEDS: ASCORBIC ACID 500 MG TABLET (FP) PO SCH (09:12)
[2022-06-07] MEDS: amLODIPine BESYLATE 5 MG TABLET (FP) PO SCH (09:12)
[2022-06-07] MEDS: EZETIMIBE 10 MG TABLET (FP) PO SCH (09:12)
[2022-06-07] MEDS: CEFEPIME 1 GM in DEXTROSE 5%-WATER 1 GM/100 ML BAG IVPB SCH ×2 (09:12→23:00)
[2022-06-07] MEDS: VANCOMYCIN/WATER FOR INJ (PEG) 1,000 MG/200 ML BAG IVPB SCH (21:26)
[2022-06-07] MEDS: DONEPEZIL HCL 10 MG TABLET (FP) PO SCH (21:27)
[2022-06-08] MEDS ORDERED: CEFEPIME HCL 1 GM VIAL (RESTRICTED TO ID) ONE ×2 (09:33→20:59)
[2022-06-08] MEDS ORDERED: DEXTROSE 5%-WATER 100 ML IVPB ONE ×2 (09:34→21:00)
[2022-06-08] MEDS: amLODIPine BESYLATE 5 MG TABLET (FP) PO SCH ×2 (09:52→10:06)
[2022-06-08] MEDS: ASCORBIC ACID 500 MG TABLET (FP) PO SCH ×2 (09:52→10:07)
[2022-06-08] MEDS: MULTIVITAMINS (DAILY MVI) TABLET (FP) PO SCH ×2 (09:52→10:07)
[2022-06-08] MEDS: EZETIMIBE 10 MG TABLET (FP) PO SCH ×2 (09:52→10:07)
[2022-06-08] MEDS: LOSARTAN POTASSIUM 25 MG TABLET PO SCH ×2 (09:52→10:05)
[2022-06-08] MEDS: APIXABAN 2.5 MG TABLET PO SCH ×3 (09:52→21:52)
[2022-06-08] MEDS: CEFEPIME 1 GM in DEXTROSE 5%-WATER 1 GM/100 ML BAG IVPB SCH ×2 (09:53→23:46)
[2022-06-08] MEDS: AMINO ACIDS/PROTEIN HYDROLYS 30 ML LIQUID.PKT PO SCH ×4 (09:53→18:04)
[2022-06-08] MEDS: VANCOMYCIN/WATER FOR INJ (PEG) 1,000 MG/200 ML BAG IVPB SCH (21:48)
[2022-06-08] MEDS: DONEPEZIL HCL 10 MG TABLET (FP) PO SCH (21:52)
[2022-06-09 05:27] VITALS: RESP 18
[2022-06-09] MEDS: AMINO ACIDS/PROTEIN HYDROLYS 30 ML LIQUID.PKT PO SCH ×3 (08:47→17:11)
[2022-06-09 10:08] LABS: BASO % 0.5 % (0-2.0); EOS % 2.1 % (0-4.5); HEMATOCRIT 30.4 % (32.4-45.2); HEMOGLOBIN 10.1 GM/dL (10.7-15.3); LYMPH % 28.4 % (8-40); MCH 28.2 pg (25.7-33.7); MCHC 33.3 g/dl (32.0-36.0); MEAN CELL VOLUME 84.8 fl (80-96); MONO % 12.6 % (3.8-10.2); NEUT % 56.4 % (42.8-82.8); PLATELET COUNT 162 10^3/uL (134-434); RBC 3.58 M/mm3 (3.60-5.2); RDW 17.4 % (11.6-15.6); WHITE BLOOD COUNT 3.8 K/mm3 (4.0-10.0)
[2022-06-09] MEDS ORDERED: CEFEPIME HCL 1 GM VIAL (RESTRICTED TO ID) ONE ×2 (10:08→21:45)
[2022-06-09] MEDS: CEFEPIME 1 GM in DEXTROSE 5%-WATER 1 GM/100 ML BAG IVPB SCH ×2 (10:10→21:47)
[2022-06-09] MEDS: MULTIVITAMINS (DAILY MVI) TABLET (FP) PO SCH (10:12)
[2022-06-09] MEDS: EZETIMIBE 10 MG TABLET (FP) PO SCH (10:12)
[2022-06-09] MEDS: ASCORBIC ACID 500 MG TABLET (FP) PO SCH (10:12)
[2022-06-09] MEDS: APIXABAN 2.5 MG TABLET PO SCH ×2 (10:12→21:14)
[2022-06-09] MEDS: amLODIPine BESYLATE 5 MG TABLET (FP) PO SCH (10:12)
[2022-06-09] MEDS: LOSARTAN POTASSIUM 25 MG TABLET PO SCH (10:13)
[2022-06-09 10:29] LABS: CALCIUM 8.2 mg/dL (8.5-10.1)
[2022-06-09 10:30] LABS: BLOOD UREA NITROGEN 3.2 mg/dL (7-18); MAGNESIUM 1.9 mg/dL (1.8-2.4)
[2022-06-09 10:33] LABS: CREATININE 0.3 mg/dL (0.55-1.3); PHOSPHOROUS 2.5 mg/dL (2.5-4.9)
[2022-06-09] MEDS ORDERED: KCL 10 MEQ IVPB 10 MEQ/100 ML INFUS.BAG IVPB SCH (10:45)
[2022-06-09] MEDS: KCL 10 MEQ IVPB 10 MEQ/100 ML INFUS.BAG IVPB SCH ×3 (12:26→16:18)
[2022-06-09] MEDS: VANCOMYCIN/WATER FOR INJ (PEG) 1,000 MG/200 ML BAG IVPB SCH (20:15)
[2022-06-09] MEDS: DONEPEZIL HCL 10 MG TABLET (FP) PO SCH (21:14)
[2022-06-09] MEDS ORDERED: DEXTROSE 5%-WATER 100 ML IVPB ONE (21:45)
[2022-06-10] MEDS: AMINO ACIDS/PROTEIN HYDROLYS 30 ML LIQUID.PKT PO SCH ×4 (09:03→17:02)
[2022-06-10] MEDS ORDERED: CEFEPIME HCL 1 GM VIAL (RESTRICTED TO ID) ONE ×2 (09:19→21:44)
[2022-06-10] MEDS ORDERED: DEXTROSE 5%-WATER 100 ML IVPB ONE ×2 (09:19→21:44)
[2022-06-10] MEDS: CEFEPIME 1 GM in DEXTROSE 5%-WATER 1 GM/100 ML BAG IVPB SCH ×2 (09:39→22:27)
[2022-06-10] MEDS: amLODIPine BESYLATE 5 MG TABLET (FP) PO SCH ×2 (09:39→10:15)
[2022-06-10] MEDS: ASCORBIC ACID 500 MG TABLET (FP) PO SCH ×2 (09:40→10:15)
[2022-06-10] MEDS: LOSARTAN POTASSIUM 25 MG TABLET PO SCH ×2 (09:40→10:15)
[2022-06-10] MEDS: MULTIVITAMINS (DAILY MVI) TABLET (FP) PO SCH ×2 (09:40→10:15)
[2022-06-10] MEDS: APIXABAN 2.5 MG TABLET PO SCH ×3 (09:40→21:13)
[2022-06-10] MEDS: EZETIMIBE 10 MG TABLET (FP) PO SCH ×2 (09:40→10:15)
[2022-06-10] MEDS: ZINC SULFATE 220 MG CAPSULE (FP) PO SCH ×2 (13:53→14:39)
[2022-06-10] MEDS: ACETAMINOPHEN 325 MG TABLET (FP) PO PRN (14:34)
[2022-06-10] MEDS: VANCOMYCIN/WATER FOR INJ (PEG) 1,000 MG/200 ML BAG IVPB SCH (20:42)
[2022-06-10] MEDS: DONEPEZIL HCL 10 MG TABLET (FP) PO SCH (21:13)
[2022-06-11] MEDS: AMINO ACIDS/PROTEIN HYDROLYS 30 ML LIQUID.PKT PO SCH ×3 (09:10→17:32)
[2022-06-11] MEDS ORDERED: DEXTROSE 5%-WATER 100 ML IVPB ONE (10:08)
[2022-06-11] MEDS ORDERED: CEFEPIME HCL 1 GM VIAL (RESTRICTED TO ID) ONE ×2 (10:08→22:23)
[2022-06-11] MEDS: CEFEPIME 1 GM in DEXTROSE 5%-WATER 1 GM/100 ML BAG IVPB SCH ×2 (10:14→22:27)
[2022-06-11] MEDS: amLODIPine BESYLATE 5 MG TABLET (FP) PO SCH (10:18)
[2022-06-11] MEDS: APIXABAN 2.5 MG TABLET PO SCH ×2 (10:18→21:31)
[2022-06-11] MEDS: LOSARTAN POTASSIUM 25 MG TABLET PO SCH (10:18)
[2022-06-11] MEDS: MULTIVITAMINS (DAILY MVI) TABLET (FP) PO SCH (10:18)
[2022-06-11] MEDS: ASCORBIC ACID 500 MG TABLET (FP) PO SCH (10:19)
[2022-06-11] MEDS: EZETIMIBE 10 MG TABLET (FP) PO SCH (10:19)
[2022-06-11] MEDS: ZINC SULFATE 220 MG CAPSULE (FP) PO SCH (13:53)
[2022-06-11] MEDS: VANCOMYCIN/WATER FOR INJ (PEG) 1,000 MG/200 ML BAG IVPB SCH (20:50)
[2022-06-11] MEDS: DONEPEZIL HCL 10 MG TABLET (FP) PO SCH (21:31)
[2022-06-12] MEDS: AMINO ACIDS/PROTEIN HYDROLYS 30 ML LIQUID.PKT PO SCH ×3 (09:57→18:03)
[2022-06-12] MEDS ORDERED: CEFEPIME HCL 1 GM VIAL (RESTRICTED TO ID) ONE ×2 (11:10→21:09)
[2022-06-12] MEDS: CEFEPIME 1 GM in DEXTROSE 5%-WATER 1 GM/100 ML BAG IVPB SCH ×2 (11:11→22:50)
[2022-06-12] MEDS: APIXABAN 2.5 MG TABLET PO SCH ×2 (11:33→21:29)
[2022-06-12] MEDS: MULTIVITAMINS (DAILY MVI) TABLET (FP) PO SCH (11:33)
[2022-06-12] MEDS: ASCORBIC ACID 500 MG TABLET (FP) PO SCH (11:33)
[2022-06-12] MEDS: LOSARTAN POTASSIUM 25 MG TABLET PO SCH (11:33)
[2022-06-12] MEDS: amLODIPine BESYLATE 5 MG TABLET (FP) PO SCH (11:33)
[2022-06-12] MEDS: EZETIMIBE 10 MG TABLET (FP) PO SCH (11:34)
[2022-06-12] MEDS: ZINC SULFATE 220 MG CAPSULE (FP) PO SCH (14:39)
[2022-06-12] MEDS: VANCOMYCIN/WATER FOR INJ (PEG) 1,000 MG/200 ML BAG IVPB SCH (20:44)
[2022-06-12] MEDS ORDERED: DEXTROSE 5%-WATER 100 ML IVPB ONE (21:09)
[2022-06-12] MEDS: DONEPEZIL HCL 10 MG TABLET (FP) PO SCH (21:29)
[2022-06-13] MEDS: AMINO ACIDS/PROTEIN HYDROLYS 30 ML LIQUID.PKT PO SCH ×3 (08:59→16:49)
[2022-06-13] MEDS ORDERED: DEXTROSE 5%-WATER 100 ML IVPB ONE (09:52)
[2022-06-13] MEDS ORDERED: CEFEPIME HCL 1 GM VIAL (RESTRICTED TO ID) ONE (09:52)
[2022-06-13] MEDS: CEFEPIME 1 GM in DEXTROSE 5%-WATER 1 GM/100 ML BAG IVPB SCH ×2 (09:57→23:00)
[2022-06-13] MEDS: LOSARTAN POTASSIUM 25 MG TABLET PO SCH (09:58)
[2022-06-13] MEDS: APIXABAN 2.5 MG TABLET PO SCH ×2 (09:59→21:46)
[2022-06-13] MEDS: EZETIMIBE 10 MG TABLET (FP) PO SCH ×2 (09:59→10:03)
[2022-06-13] MEDS: amLODIPine BESYLATE 5 MG TABLET (FP) PO SCH (09:59)
[2022-06-13] MEDS: ASCORBIC ACID 500 MG TABLET (FP) PO SCH (10:03)
[2022-06-13] MEDS: MULTIVITAMINS (DAILY MVI) TABLET (FP) PO SCH (10:03)
[2022-06-13] MEDS: ZINC SULFATE 220 MG CAPSULE (FP) PO SCH (13:18)
[2022-06-13] MEDS: VANCOMYCIN/WATER FOR INJ (PEG) 1,000 MG/200 ML BAG IVPB SCH (21:46)
[2022-06-13] MEDS: DONEPEZIL HCL 10 MG TABLET (FP) PO SCH (21:46)
[2022-06-14] MEDS: AMINO ACIDS/PROTEIN HYDROLYS 30 ML LIQUID.PKT PO SCH ×3 (08:21→16:57)
[2022-06-14 08:39] LABS: BASO % 0.6 % (0-2.0); EOS % 1.6 % (0-4.5); HEMATOCRIT 27.9 % (32.4-45.2); HEMOGLOBIN 9.5 GM/dL (10.7-15.3); LYMPH % 37.5 % (8-40); MCH 28.2 pg (25.7-33.7); MEAN CELL VOLUME 82.8 fl (80-96); MEAN PLT VOLUME 8.2 fl (7.5-11.1); MONO % 12.3 % (3.8-10.2); PLATELET COUNT 185 10^3/uL (134-434); RBC 3.36 M/mm3 (3.60-5.2); RDW 17.9 % (11.6-15.6); WHITE BLOOD COUNT 3.5 K/mm3 (4.0-10.0)
[2022-06-14 09:00] LABS: CHLORIDE 107 mmol/L (98-107); SODIUM 143 mmol/L (136-145)
[2022-06-14 09:09] LABS: ALBUMIN 1.8 g/dl (3.4-5.0); CO2 25 mmol/L (21-32); CREATININE 0.2 mg/dL (0.55-1.3); GLUCOSE,RANDOM 90 mg/dL (74-106); SGPT/ALT 12 U/L (13-61)
[2022-06-14 09:10] LABS: TOT PROT 4.7 g/dl (6.4-8.2)
[2022-06-14 09:11] LABS: BILIRUBIN,TOTAL 0.5 mg/dL (0.2-1)
[2022-06-14 09:12] LABS: ALK PHOS 126 U/L (45-117); SGOT/AST 16 U/L (15-37)
[2022-06-14 09:18] LABS: ANION GAP 11 MMOL/L (8-16)
[2022-06-14] MEDS ORDERED: CEFEPIME HCL 1 GM VIAL (RESTRICTED TO ID) ONE (09:26)
[2022-06-14] MEDS ORDERED: DEXTROSE 5%-WATER 100 ML IVPB ONE (09:26)
[2022-06-14] MEDS: CEFEPIME 1 GM in DEXTROSE 5%-WATER 1 GM/100 ML BAG IVPB SCH (09:40)
[2022-06-14] MEDS: LOSARTAN POTASSIUM 25 MG TABLET PO SCH (09:40)
[2022-06-14] MEDS: APIXABAN 2.5 MG TABLET PO SCH ×2 (09:41→21:28)
[2022-06-14] MEDS: EZETIMIBE 10 MG TABLET (FP) PO SCH (09:41)
[2022-06-14] MEDS: ASCORBIC ACID 500 MG TABLET (FP) PO SCH (09:41)
[2022-06-14] MEDS: amLODIPine BESYLATE 5 MG TABLET (FP) PO SCH (09:41)
[2022-06-14] MEDS: MULTIVITAMINS (DAILY MVI) TABLET (FP) PO SCH (09:41)
[2022-06-14] MEDS: ZINC SULFATE 220 MG CAPSULE (FP) PO SCH (13:02)
[2022-06-14] MEDS: DONEPEZIL HCL 10 MG TABLET (FP) PO SCH (21:28)
[2022-06-15] MEDS: AMINO ACIDS/PROTEIN HYDROLYS 30 ML LIQUID.PKT PO SCH ×4 (08:04→17:17)
[2022-06-15] MEDS: MULTIVITAMINS (DAILY MVI) TABLET (FP) PO SCH (08:59)
[2022-06-15] MEDS: amLODIPine BESYLATE 5 MG TABLET (FP) PO SCH (08:59)
[2022-06-15] MEDS: LOSARTAN POTASSIUM 25 MG TABLET PO SCH (08:59)
[2022-06-15] MEDS: APIXABAN 2.5 MG TABLET PO SCH (08:59)
[2022-06-15] MEDS: EZETIMIBE 10 MG TABLET (FP) PO SCH (09:00)
[2022-06-15] MEDS: ASCORBIC ACID 500 MG TABLET (FP) PO SCH (09:00)
[2022-06-15] MEDS: ZINC SULFATE 220 MG CAPSULE (FP) PO SCH (14:12)
[2022-06-16] MEDS: DONEPEZIL HCL 10 MG TABLET (FP) PO SCH ×2 (00:30→21:36)
[2022-06-16] MEDS: AMINO ACIDS/PROTEIN HYDROLYS 30 ML LIQUID.PKT PO SCH ×3 (08:25→17:18)
[2022-06-16 09:18] LABS: BASO % 0.5 % (0-2.0); EOS % 0.7 % (0-4.5); HEMOGLOBIN 9.6 GM/dL (10.7-15.3); LYMPH % 28.8 % (8-40); MCH 28.1 pg (25.7-33.7); MCHC 33.1 g/dl (32.0-36.0); MEAN CELL VOLUME 84.8 fl (80-96); MEAN PLT VOLUME 8.7 fl (7.5-11.1); MONO % 13.4 % (3.8-10.2); NEUT % 56.6 % (42.8-82.8); PLATELET COUNT 177 10^3/uL (134-434); RBC 3.42 M/mm3 (3.60-5.2); RDW 18.8 % (11.6-15.6); WHITE BLOOD COUNT 4.3 K/mm3 (4.0-10.0)
[2022-06-16 09:49] LABS: CALCIUM 8.7 mg/dL (8.5-10.1)
[2022-06-16 09:50] LABS: BLOOD UREA NITROGEN 6.5 mg/dL (7-18)
[2022-06-16 09:53] LABS: CREATININE 0.3 mg/dL (0.55-1.3); PHOSPHOROUS 2.6 mg/dL (2.5-4.9)
[2022-06-16] MEDS: MULTIVITAMINS (DAILY MVI) TABLET (FP) PO SCH (10:59)
[2022-06-16] MEDS: LOSARTAN POTASSIUM 25 MG TABLET PO SCH (10:59)
[2022-06-16] MEDS: amLODIPine BESYLATE 5 MG TABLET (FP) PO SCH (10:59)
[2022-06-16] MEDS: EZETIMIBE 10 MG TABLET (FP) PO SCH (11:00)
[2022-06-16] MEDS: ASCORBIC ACID 500 MG TABLET (FP) PO SCH (11:00)
[2022-06-16] MEDS: KCL 10 MEQ IVPB 10 MEQ/100 ML INFUS.BAG IVPB SCH ×3 (11:41→13:58)
[2022-06-16] MEDS: ZINC SULFATE 220 MG CAPSULE (FP) PO SCH (13:36)
[2022-06-17 05:17] VITALS: TEMP 97.9
[2022-06-17] MEDS: AMINO ACIDS/PROTEIN HYDROLYS 30 ML LIQUID.PKT PO SCH ×2 (08:31→12:15)
[2022-06-17 08:43] VITALS: BP 133/75; PULSE 96
[2022-06-17] MEDS: MULTIVITAMINS (DAILY MVI) TABLET (FP) PO SCH (09:03)
[2022-06-17] MEDS: EZETIMIBE 10 MG TABLET (FP) PO SCH (09:03)
[2022-06-17] MEDS: LOSARTAN POTASSIUM 25 MG TABLET PO SCH (09:04)
[2022-06-17] MEDS: amLODIPine BESYLATE 5 MG TABLET (FP) PO SCH (09:04)
[2022-06-17] MEDS: APIXABAN 2.5 MG TABLET PO SCH (09:04)
[2022-06-17] MEDS: ASCORBIC ACID 500 MG TABLET (FP) PO SCH (09:04)
[2022-06-17] MEDS ORDERED: ACETAMINOPHEN 1000 MG/100 ML BAG IVPB ONE (10:00)
[2022-06-17] MEDS: ACETAMINOPHEN 325 MG TABLET (FP) PO PRN (10:17)
== END 2022-06-17 14:12 | disposition home health service (06) | DRG 463 ==
LOC: JER 15:34 → JERBED 19:17 → J6S 05-21 04:27
PROVIDERS: ADMIT Internal Medicine
PROC: B41DZZZ Fluoroscopy of Aorta and Bilateral Lower Extremity Arteries (ICD-10-PCS; 2022-05-28)
PROC: B40GYZZ Plain Radiography of Left Lower Extremity Arteries using Other Contrast (ICD-10-PCS; 2022-05-28)
PROC: 0QBM0ZZ Excision of Left Tarsal, Open Approach (ICD-10-PCS; 2022-06-02)
PROC: 3E0132A Introduction of Anti-Infective Envelope into Subcutaneous Tissue, Percutaneous Approach (ICD-10-PCS; 2022-06-02)
PROC: 0JBR0ZZ Excision of Left Foot Subcutaneous Tissue and Fascia, Open Approach (ICD-10-PCS; principal; 2022-06-02 14:30)
DX: M86.672 Other chronic osteomyelitis, left ankle and foot (principal); L89.624 Pressure ulcer of left heel, stage 4; R53.2 Functional quadriplegia; N39.0 Urinary tract infection, site not specified; M86.8X7 Other osteomyelitis, ankle and foot; F03.90 Unspecified dementia, unspecified severity, without behavioral disturbance, psychotic disturbance, mood disturbance, and anxiety; N93.9 Abnormal uterine and vaginal bleeding, unspecified; Z86.718 Personal history of other venous thrombosis and embolism; Z79.01 Long term (current) use of anticoagulants; I12.9 Hypertensive chronic kidney disease with stage 1 through stage 4 chronic kidney disease, or unspecified chronic kidney disease; L89.610 Pressure ulcer of right heel, unstageable; N89.8 Other specified noninflammatory disorders of vagina; E78.5 Hyperlipidemia, unspecified; Z88.0 Allergy status to penicillin; I73.9 Peripheral vascular disease, unspecified; N18.9 Chronic kidney disease, unspecified; I48.91 Unspecified atrial fibrillation; R94.31 Abnormal electrocardiogram [ECG] [EKG]; E78.1 Pure hyperglyceridemia; N28.1 Cyst of kidney, acquired; K80.20 Calculus of gallbladder without cholecystitis without obstruction
CPT/HCPCS: 36415; 71045-TC-FY; 73610-TC-LT-FY; 73630-TC-LT; 73718-TC-LT; 75635-TC; 76000-TC-FY; 76775-TC; 78452-TC; 80048; 80053; 81003; 82550; 82553; 82803; 83036; 83605; 83735; 84100; 84484; 85025; 85610; 85651; 85730; 86140; 86850; 86900; 86901; 87040; 87070; 87086; 87186; 87205; 88304-TC; 88311-TC; 93005; 93010; 93017; 93306-TC; 94760; 97161-GP; 99285-25; A9502; C9803-CS; G0480; J1644; J2785; Q9967; U0003; U0005

== ENCOUNTER 2022-10-23 12:45 | Inpatient (IN) | payer OTHER ==
[2022-10-23] MEDS ORDERED: VANCOMYCIN 1 GM in D5W (PRE-DOCKED) 1,000 MG/250 ML IVPB ONE (14:30)
[2022-10-23] MEDS ORDERED: MEROPENEM 1 GM in DEXTROSE 5%-WATER 100 ML IVPB ONE (14:36)
[2022-10-23] MEDS ORDERED: MEROPENEM 1 GM VIAL (RESTRICTED TO ID) IVPB ONE (14:49)
[2022-10-23] MEDS ORDERED: VANCOMYCIN/WATER FOR INJ (PEG) 1,000 MG/200 ML BAG IVPB ONE (14:50)
[2022-10-23] MEDS ORDERED: morphine CARPU-JECT 2 MG/1 ML DISP.SYRIN IVPUSH ONE (15:03)
[2022-10-23 15:39] LABS: BASO % 0.3 % (0-2.0); EOS % 0.2 % (0-4.5); HEMOGLOBIN 11.2 GM/dL (10.7-15.3); LYMPH % 12.3 % (8-40); MCH 27.1 pg (25.7-33.7); MCHC 31.1 g/dl (32.0-36.0); MEAN PLT VOLUME 8.6 fl (7.5-11.1); MONO % 4.4 % (3.8-10.2); NEUT % 82.8 % (42.8-82.8); PLATELET COUNT 395 10^3/uL (134-434); RBC 4.13 M/mm3 (3.60-5.2); RDW 15.3 % (11.6-15.6); WHITE BLOOD COUNT 8.4 K/mm3 (4.0-10.0)
[2022-10-23 15:53] LABS: INR 1.21 (0.83-1.09)
[2022-10-23 15:56] LABS: ACTIVATED PTT 24.4 SECONDS (25.2-36.5)
[2022-10-23 16:08] LABS: CALCIUM 8.9 mg/dL (8.5-10.1)
[2022-10-23 16:10] LABS: ALBUMIN 2.1 g/dl (3.4-5.0); BLOOD UREA NITROGEN 15.2 mg/dL (7-18)
[2022-10-23] MEDS ORDERED: ACETAMINOPHEN 325 MG TABLET (FP) PO PRN (16:11)
[2022-10-23 16:12] LABS: CREATININE 0.5 mg/dL (0.55-1.3)
[2022-10-23 16:14] LABS: BILIRUBIN,TOTAL 0.3 mg/dL (0.2-1); TOT PROT 6.6 g/dl (6.4-8.2)
[2022-10-23 16:33] LABS: ERYTHROCYTE SEDIMENTATION RATE 92 mm/hr (0-30)
[2022-10-23] MEDS: APIXABAN 2.5 MG TABLET PO SCH (22:22)
[2022-10-24] MEDS: amLODIPine BESYLATE 5 MG TABLET (FP) PO SCH (11:34)
[2022-10-24] MEDS: LOSARTAN POTASSIUM 25 MG TABLET PO SCH (11:34)
[2022-10-24] MEDS: APIXABAN 2.5 MG TABLET PO SCH ×2 (11:34→23:47)
[2022-10-24] MEDS: EZETIMIBE 10 MG TABLET (FP) PO SCH (11:35)
[2022-10-24] MEDS: metoPROLOL SUCCINATE 25 MG TAB.SR.24H (FP) PO SCH (11:35)
[2022-10-24 13:55] VITALS: BMI 17.7
[2022-10-24] MEDS: COLLAGENASE CLOSTRIDIUM HIST. 30 GRAMS TUBE TP SCH (14:07)
[2022-10-24] MEDS: AMINO ACIDS/PROTEIN HYDROLYS 30 ML LIQUID.PKT PO SCH (17:55)
[2022-10-24] MEDS: ASCORBIC ACID 250 MG TABLET (FP) PO SCH (23:48)
[2022-10-25] MEDS: AMINO ACIDS/PROTEIN HYDROLYS 30 ML LIQUID.PKT PO SCH ×2 (08:33→17:59)
[2022-10-25] MEDS: MULTIVITAMINS (DAILY MVI) TABLET (FP) PO SCH (09:40)
[2022-10-25] MEDS: APIXABAN 2.5 MG TABLET PO SCH ×2 (09:40→22:09)
[2022-10-25] MEDS: ZINC SULFATE 220 MG CAPSULE (FP) PO SCH (09:40)
[2022-10-25] MEDS: amLODIPine BESYLATE 5 MG TABLET (FP) PO SCH (09:40)
[2022-10-25] MEDS: LOSARTAN POTASSIUM 25 MG TABLET PO SCH (09:40)
[2022-10-25] MEDS: ASCORBIC ACID 250 MG TABLET (FP) PO SCH ×2 (09:41→22:09)
[2022-10-25] MEDS: EZETIMIBE 10 MG TABLET (FP) PO SCH (09:41)
[2022-10-25] MEDS: metoPROLOL SUCCINATE 25 MG TAB.SR.24H (FP) PO SCH (09:41)
[2022-10-25] MEDS: COLLAGENASE CLOSTRIDIUM HIST. 30 GRAMS TUBE TP SCH (10:45)
[2022-10-25] MEDS: CEFEPIME 1 GM in DEXTROSE 5%-WATER 100 ML IVPB SCH ×2 (11:07→18:11)
[2022-10-26] MEDS: CEFEPIME 1 GM in DEXTROSE 5%-WATER 100 ML IVPB SCH ×2 (01:01→11:37)
[2022-10-26] MEDS: AMINO ACIDS/PROTEIN HYDROLYS 30 ML LIQUID.PKT PO SCH ×2 (07:57→18:53)
[2022-10-26] MEDS: COLLAGENASE CLOSTRIDIUM HIST. 30 GRAMS TUBE TP SCH (10:30)
[2022-10-26] MEDS: ASCORBIC ACID 250 MG TABLET (FP) PO SCH ×3 (11:36→22:34)
[2022-10-26] MEDS: APIXABAN 2.5 MG TABLET PO SCH ×3 (11:36→22:34)
[2022-10-26] MEDS: MULTIVITAMINS (DAILY MVI) TABLET (FP) PO SCH (11:36)
[2022-10-26] MEDS: LOSARTAN POTASSIUM 25 MG TABLET PO SCH (11:37)
[2022-10-26] MEDS: amLODIPine BESYLATE 5 MG TABLET (FP) PO SCH (11:37)
[2022-10-26] MEDS: ZINC SULFATE 220 MG CAPSULE (FP) PO SCH (11:37)
[2022-10-26] MEDS: EZETIMIBE 10 MG TABLET (FP) PO SCH (11:38)
[2022-10-26] MEDS: metoPROLOL SUCCINATE 25 MG TAB.SR.24H (FP) PO SCH (11:38)
[2022-10-26] MEDS: DONEPEZIL HCL 10 MG TABLET (FP) PO SCH ×2 (22:25→22:34)
[2022-10-27] MEDS: AMINO ACIDS/PROTEIN HYDROLYS 30 ML LIQUID.PKT PO SCH ×4 (09:40→17:51)
[2022-10-27] MEDS: EZETIMIBE 10 MG TABLET (FP) PO SCH (09:47)
[2022-10-27] MEDS: CEFTRIAXONE 2 GM in DEXTROSE 5%-WATER 100 ML IVPB SCH (09:47)
[2022-10-27] MEDS: APIXABAN 2.5 MG TABLET PO SCH ×2 (09:47→22:02)
[2022-10-27] MEDS: LOSARTAN POTASSIUM 25 MG TABLET PO SCH (09:47)
[2022-10-27] MEDS: amLODIPine BESYLATE 5 MG TABLET (FP) PO SCH (09:47)
[2022-10-27] MEDS: metoPROLOL SUCCINATE 25 MG TAB.SR.24H (FP) PO SCH (11:12)
[2022-10-27] MEDS: ASCORBIC ACID 250 MG TABLET (FP) PO SCH ×2 (11:16→22:03)
[2022-10-27] MEDS: ZINC SULFATE 220 MG CAPSULE (FP) PO SCH (11:16)
[2022-10-27] MEDS: MULTIVITAMINS (DAILY MVI) TABLET (FP) PO SCH (11:16)
[2022-10-27] MEDS: COLLAGENASE CLOSTRIDIUM HIST. 30 GRAMS TUBE TP SCH (13:00)
[2022-10-27] MEDS: DONEPEZIL HCL 10 MG TABLET (FP) PO SCH (22:02)
[2022-10-28] MEDS: AMINO ACIDS/PROTEIN HYDROLYS 30 ML LIQUID.PKT PO SCH ×2 (09:20→17:01)
[2022-10-28] MEDS: EZETIMIBE 10 MG TABLET (FP) PO SCH (12:10)
[2022-10-28] MEDS: LOSARTAN POTASSIUM 25 MG TABLET PO SCH (12:11)
[2022-10-28] MEDS: ZINC SULFATE 220 MG CAPSULE (FP) PO SCH (12:11)
[2022-10-28] MEDS: MULTIVITAMINS (DAILY MVI) TABLET (FP) PO SCH (12:11)
[2022-10-28] MEDS: ASCORBIC ACID 250 MG TABLET (FP) PO SCH ×2 (12:11→21:57)
[2022-10-28] MEDS: APIXABAN 2.5 MG TABLET PO SCH ×2 (12:11→21:57)
[2022-10-28] MEDS: amLODIPine BESYLATE 5 MG TABLET (FP) PO SCH (12:11)
[2022-10-28] MEDS: CEFTRIAXONE 2 GM in DEXTROSE 5%-WATER 100 ML IVPB SCH (12:13)
[2022-10-28] MEDS: metoPROLOL SUCCINATE 25 MG TAB.SR.24H (FP) PO SCH (12:20)
[2022-10-28] MEDS: COLLAGENASE CLOSTRIDIUM HIST. 30 GRAMS TUBE TP SCH (17:01)
[2022-10-28] MEDS: DONEPEZIL HCL 10 MG TABLET (FP) PO SCH (21:57)
[2022-10-29] MEDS: AMINO ACIDS/PROTEIN HYDROLYS 30 ML LIQUID.PKT PO SCH ×2 (08:38→17:08)
[2022-10-29] MEDS: CEFTRIAXONE 2 GM in DEXTROSE 5%-WATER 100 ML IVPB SCH (09:29)
[2022-10-29] MEDS: MULTIVITAMINS (DAILY MVI) TABLET (FP) PO SCH (09:30)
[2022-10-29] MEDS: EZETIMIBE 10 MG TABLET (FP) PO SCH (09:30)
[2022-10-29] MEDS: ASCORBIC ACID 250 MG TABLET (FP) PO SCH ×2 (09:30→22:09)
[2022-10-29] MEDS: ZINC SULFATE 220 MG CAPSULE (FP) PO SCH (09:30)
[2022-10-29] MEDS: amLODIPine BESYLATE 5 MG TABLET (FP) PO SCH (09:30)
[2022-10-29] MEDS: APIXABAN 2.5 MG TABLET PO SCH ×2 (09:31→22:10)
[2022-10-29] MEDS: metoPROLOL SUCCINATE 25 MG TAB.SR.24H (FP) PO SCH (09:31)
[2022-10-29] MEDS: LOSARTAN POTASSIUM 25 MG TABLET PO SCH (09:31)
[2022-10-29] MEDS: COLLAGENASE CLOSTRIDIUM HIST. 30 GRAMS TUBE TP SCH (09:36)
[2022-10-29] MEDS: DONEPEZIL HCL 10 MG TABLET (FP) PO SCH (22:09)
[2022-10-30] MEDS: AMINO ACIDS/PROTEIN HYDROLYS 30 ML LIQUID.PKT PO SCH ×3 (08:15→17:55)
[2022-10-30] MEDS: EZETIMIBE 10 MG TABLET (FP) PO SCH ×2 (10:12→15:36)
[2022-10-30] MEDS: LOSARTAN POTASSIUM 25 MG TABLET PO SCH ×2 (10:12→15:36)
[2022-10-30] MEDS: amLODIPine BESYLATE 5 MG TABLET (FP) PO SCH ×2 (10:12→15:36)
[2022-10-30] MEDS: ZINC SULFATE 220 MG CAPSULE (FP) PO SCH ×2 (10:12→15:35)
[2022-10-30] MEDS: ASCORBIC ACID 250 MG TABLET (FP) PO SCH ×3 (10:12→23:34)
[2022-10-30] MEDS: metoPROLOL SUCCINATE 25 MG TAB.SR.24H (FP) PO SCH ×2 (10:12→15:35)
[2022-10-30] MEDS: MULTIVITAMINS (DAILY MVI) TABLET (FP) PO SCH ×2 (10:12→15:36)
[2022-10-30] MEDS: COLLAGENASE CLOSTRIDIUM HIST. 30 GRAMS TUBE TP SCH (10:12)
[2022-10-30] MEDS: APIXABAN 2.5 MG TABLET PO SCH ×3 (10:12→23:33)
[2022-10-30] MEDS: CEFTRIAXONE 2 GM in DEXTROSE 5%-WATER 100 ML IVPB SCH (10:12)
[2022-10-30 10:32] LABS: BASO % 0.3 % (0-2.0); EOS % 0.3 % (0-4.5); HEMATOCRIT 27.5 % (32.4-45.2); HEMOGLOBIN 8.8 GM/dL (10.7-15.3); LYMPH % 17.2 % (8-40); MCH 27.5 pg (25.7-33.7); MEAN CELL VOLUME 85.9 fl (80-96); MEAN PLT VOLUME 7.8 fl (7.5-11.1); MONO % 8.9 % (3.8-10.2); NEUT % 73.3 % (42.8-82.8); PLATELET COUNT 258 10^3/uL (134-434); RDW 16.3 % (11.6-15.6); WHITE BLOOD COUNT 6.2 K/mm3 (4.0-10.0)
[2022-10-30 11:01] LABS: CALCIUM 8.5 mg/dL (8.5-10.1)
[2022-10-30 11:02] LABS: ALBUMIN 1.7 g/dl (3.4-5.0); BLOOD UREA NITROGEN 10.3 mg/dL (7-18)
[2022-10-30 11:04] LABS: CREATININE 0.4 mg/dL (0.55-1.3)
[2022-10-30 11:06] LABS: BILIRUBIN,TOTAL 0.7 mg/dL (0.2-1); TOT PROT 4.9 g/dl (6.4-8.2)
[2022-10-30 11:31] LABS: ERYTHROCYTE SEDIMENTATION RATE 55 mm/hr (0-30)
[2022-10-30] MEDS ORDERED: ACETAMINOPHEN 1000 MG/100 ML BAG IVPB ONE (16:55)
[2022-10-30] MEDS: DONEPEZIL HCL 10 MG TABLET (FP) PO SCH (23:33)
[2022-10-31] MEDS: AMINO ACIDS/PROTEIN HYDROLYS 30 ML LIQUID.PKT PO SCH ×2 (09:10→17:33)
[2022-10-31] MEDS: LOSARTAN POTASSIUM 25 MG TABLET PO SCH (09:10)
[2022-10-31] MEDS: APIXABAN 2.5 MG TABLET PO SCH ×3 (09:10→22:04)
[2022-10-31] MEDS: amLODIPine BESYLATE 5 MG TABLET (FP) PO SCH ×2 (09:11→12:14)
[2022-10-31] MEDS: MULTIVITAMINS (DAILY MVI) TABLET (FP) PO SCH (09:12)
[2022-10-31] MEDS: metoPROLOL SUCCINATE 25 MG TAB.SR.24H (FP) PO SCH (09:12)
[2022-10-31] MEDS: EZETIMIBE 10 MG TABLET (FP) PO SCH (09:12)
[2022-10-31] MEDS: CEFTRIAXONE 2 GM in DEXTROSE 5%-WATER 100 ML IVPB SCH (09:12)
[2022-10-31] MEDS: ZINC SULFATE 220 MG CAPSULE (FP) PO SCH (09:12)
[2022-10-31] MEDS: ASCORBIC ACID 250 MG TABLET (FP) PO SCH ×2 (09:12→22:04)
[2022-10-31] MEDS: COLLAGENASE CLOSTRIDIUM HIST. 30 GRAMS TUBE TP SCH (09:16)
[2022-10-31 09:47] LABS: BASO % 0.5 % (0-2.0); EOS % 0.5 % (0-4.5); HEMATOCRIT 31.6 % (32.4-45.2); LYMPH % 17.4 % (8-40); MCH 27.4 pg (25.7-33.7); MCHC 31.6 g/dl (32.0-36.0); MEAN CELL VOLUME 86.7 fl (80-96); MEAN PLT VOLUME 8.1 fl (7.5-11.1); MONO % 6.6 % (3.8-10.2); PLATELET COUNT 264 10^3/uL (134-434); RBC 3.64 M/mm3 (3.60-5.2); RDW 16.4 % (11.6-15.6); WHITE BLOOD COUNT 5.1 K/mm3 (4.0-10.0)
[2022-10-31 10:06] LABS: CALCIUM 8.6 mg/dL (8.5-10.1)
[2022-10-31 10:07] LABS: ALBUMIN 1.8 g/dl (3.4-5.0); BLOOD UREA NITROGEN 10.3 mg/dL (7-18)
[2022-10-31 10:10] LABS: CREATININE 0.5 mg/dL (0.55-1.3)
[2022-10-31 10:11] LABS: BILIRUBIN,TOTAL 0.2 mg/dL (0.2-1)
[2022-10-31 10:12] LABS: TOT PROT 5.1 g/dl (6.4-8.2)
[2022-10-31] MEDS ORDERED: CEPHALEXIN 250 MG/5 ML ORAL SUSPENSION PO SCH (10:30)
[2022-10-31] MEDS: CEPHALEXIN 250 MG/5 ML ORAL SUSPENSION PO SCH ×2 (12:14→20:43)
[2022-10-31] MEDS: metroNIDAZOLE 250 MG TABLET PO SCH ×2 (13:09→22:09)
[2022-10-31] MEDS: DONEPEZIL HCL 10 MG TABLET (FP) PO SCH (22:04)
[2022-11-01] MEDS: CEPHALEXIN 250 MG/5 ML ORAL SUSPENSION PO SCH ×3 (03:00→18:39)
[2022-11-01] MEDS: metroNIDAZOLE 250 MG TABLET PO SCH ×3 (06:10→21:57)
[2022-11-01] MEDS: AMINO ACIDS/PROTEIN HYDROLYS 30 ML LIQUID.PKT PO SCH ×2 (08:22→17:29)
[2022-11-01] MEDS: ASCORBIC ACID 250 MG TABLET (FP) PO SCH ×4 (09:52→21:57)
[2022-11-01] MEDS: MULTIVITAMINS (DAILY MVI) TABLET (FP) PO SCH ×3 (09:52→14:06)
[2022-11-01] MEDS: LOSARTAN POTASSIUM 25 MG TABLET PO SCH ×3 (09:53→14:05)
[2022-11-01] MEDS: ZINC SULFATE 220 MG CAPSULE (FP) PO SCH ×3 (09:53→14:06)
[2022-11-01] MEDS: EZETIMIBE 10 MG TABLET (FP) PO SCH ×3 (09:53→14:06)
[2022-11-01] MEDS: metoPROLOL SUCCINATE 25 MG TAB.SR.24H (FP) PO SCH ×3 (09:53→14:06)
[2022-11-01] MEDS: APIXABAN 2.5 MG TABLET PO SCH ×4 (09:53→21:57)
[2022-11-01] MEDS: amLODIPine BESYLATE 5 MG TABLET (FP) PO SCH ×3 (09:53→14:06)
[2022-11-01] MEDS: COLLAGENASE CLOSTRIDIUM HIST. 30 GRAMS TUBE TP SCH (09:53)
[2022-11-01] MEDS: DONEPEZIL HCL 10 MG TABLET (FP) PO SCH (21:57)
[2022-11-02] MEDS: CEPHALEXIN 250 MG/5 ML ORAL SUSPENSION PO SCH ×3 (04:42→22:53)
[2022-11-02] MEDS: metroNIDAZOLE 250 MG TABLET PO SCH ×3 (06:20→23:43)
[2022-11-02] MEDS: AMINO ACIDS/PROTEIN HYDROLYS 30 ML LIQUID.PKT PO SCH ×2 (08:18→17:37)
[2022-11-02] MEDS: metoPROLOL SUCCINATE 25 MG TAB.SR.24H (FP) PO SCH (11:05)
[2022-11-02] MEDS: ASCORBIC ACID 250 MG TABLET (FP) PO SCH ×2 (11:05→22:54)
[2022-11-02] MEDS: EZETIMIBE 10 MG TABLET (FP) PO SCH (11:05)
[2022-11-02] MEDS: MULTIVITAMINS (DAILY MVI) TABLET (FP) PO SCH (11:05)
[2022-11-02] MEDS: LOSARTAN POTASSIUM 25 MG TABLET PO SCH (11:05)
[2022-11-02] MEDS: ZINC SULFATE 220 MG CAPSULE (FP) PO SCH (11:05)
[2022-11-02] MEDS: APIXABAN 2.5 MG TABLET PO SCH ×2 (11:05→22:53)
[2022-11-02] MEDS: amLODIPine BESYLATE 5 MG TABLET (FP) PO SCH (11:05)
[2022-11-02] MEDS: COLLAGENASE CLOSTRIDIUM HIST. 30 GRAMS TUBE TP SCH (11:06)
[2022-11-02] MEDS: DONEPEZIL HCL 10 MG TABLET (FP) PO SCH (22:53)
[2022-11-03] MEDS: CEPHALEXIN 250 MG/5 ML ORAL SUSPENSION PO SCH ×3 (03:16→20:45)
[2022-11-03] MEDS: metroNIDAZOLE 250 MG TABLET PO SCH ×3 (06:01→22:55)
[2022-11-03] MEDS: AMINO ACIDS/PROTEIN HYDROLYS 30 ML LIQUID.PKT PO SCH ×2 (08:53→17:50)
[2022-11-03] MEDS: metoPROLOL SUCCINATE 25 MG TAB.SR.24H (FP) PO SCH (09:47)
[2022-11-03] MEDS: COLLAGENASE CLOSTRIDIUM HIST. 30 GRAMS TUBE TP SCH (09:47)
[2022-11-03] MEDS: EZETIMIBE 10 MG TABLET (FP) PO SCH (09:47)
[2022-11-03] MEDS: APIXABAN 2.5 MG TABLET PO SCH ×2 (09:47→22:55)
[2022-11-03] MEDS: MULTIVITAMINS (DAILY MVI) TABLET (FP) PO SCH (09:47)
[2022-11-03] MEDS: ZINC SULFATE 220 MG CAPSULE (FP) PO SCH (09:47)
[2022-11-03] MEDS: amLODIPine BESYLATE 5 MG TABLET (FP) PO SCH (09:47)
[2022-11-03] MEDS: ASCORBIC ACID 250 MG TABLET (FP) PO SCH ×2 (09:47→22:55)
[2022-11-03] MEDS: LOSARTAN POTASSIUM 25 MG TABLET PO SCH (09:47)
[2022-11-03] MEDS: DONEPEZIL HCL 10 MG TABLET (FP) PO SCH (22:50)
[2022-11-04] MEDS: CEPHALEXIN 250 MG/5 ML ORAL SUSPENSION PO SCH ×3 (04:00→23:31)
[2022-11-04] MEDS: metroNIDAZOLE 250 MG TABLET PO SCH ×3 (05:28→23:32)
[2022-11-04] MEDS: ZINC SULFATE 220 MG CAPSULE (FP) PO SCH ×2 (09:51→17:42)
[2022-11-04] MEDS: AMINO ACIDS/PROTEIN HYDROLYS 30 ML LIQUID.PKT PO SCH ×2 (09:51→17:26)
[2022-11-04] MEDS: MULTIVITAMINS (DAILY MVI) TABLET (FP) PO SCH ×2 (09:51→17:42)
[2022-11-04] MEDS: amLODIPine BESYLATE 5 MG TABLET (FP) PO SCH ×2 (09:51→17:42)
[2022-11-04] MEDS: APIXABAN 2.5 MG TABLET PO SCH ×3 (09:51→23:31)
[2022-11-04] MEDS: EZETIMIBE 10 MG TABLET (FP) PO SCH ×2 (09:51→17:43)
[2022-11-04] MEDS: ASCORBIC ACID 250 MG TABLET (FP) PO SCH ×3 (09:51→23:32)
[2022-11-04] MEDS: metoPROLOL SUCCINATE 25 MG TAB.SR.24H (FP) PO SCH ×2 (09:52→17:42)
[2022-11-04] MEDS: COLLAGENASE CLOSTRIDIUM HIST. 30 GRAMS TUBE TP SCH ×2 (09:52→17:42)
[2022-11-04] MEDS: LOSARTAN POTASSIUM 25 MG TABLET PO SCH ×2 (09:52→17:41)
[2022-11-04] MEDS: DONEPEZIL HCL 10 MG TABLET (FP) PO SCH (23:31)
[2022-11-05] MEDS: CEPHALEXIN 250 MG/5 ML ORAL SUSPENSION PO SCH ×2 (03:45→11:34)
[2022-11-05] MEDS: metroNIDAZOLE 250 MG TABLET PO SCH (06:38)
[2022-11-05] MEDS: AMINO ACIDS/PROTEIN HYDROLYS 30 ML LIQUID.PKT PO SCH (09:50)
[2022-11-05] MEDS: amLODIPine BESYLATE 5 MG TABLET (FP) PO SCH (09:51)
[2022-11-05] MEDS: APIXABAN 2.5 MG TABLET PO SCH (09:51)
[2022-11-05] MEDS: LOSARTAN POTASSIUM 25 MG TABLET PO SCH (09:51)
[2022-11-05] MEDS: COLLAGENASE CLOSTRIDIUM HIST. 30 GRAMS TUBE TP SCH (09:51)
[2022-11-05] MEDS: EZETIMIBE 10 MG TABLET (FP) PO SCH (09:51)
[2022-11-05] MEDS: ASCORBIC ACID 250 MG TABLET (FP) PO SCH (09:51)
[2022-11-05] MEDS: ZINC SULFATE 220 MG CAPSULE (FP) PO SCH (09:51)
[2022-11-05] MEDS: metoPROLOL SUCCINATE 25 MG TAB.SR.24H (FP) PO SCH (09:51)
[2022-11-05] MEDS: MULTIVITAMINS (DAILY MVI) TABLET (FP) PO SCH (09:51)
[2022-11-05 10:35] VITALS: BP 147/98; PULSE 83; RESP 20; TEMP 97.9
== END 2022-11-05 12:33 | disposition home or self-care (01) | DRG 539 ==
LOC: JER 12:45 → JERBED 16:06 → J5S 21:15
PROVIDERS: ADMIT Internal Medicine; ATTEND Internal Medicine
DX: M86.10 Other acute osteomyelitis, unspecified site (principal); L89.154 Pressure ulcer of sacral region, stage 4; R53.2 Functional quadriplegia; U07.1 COVID-19; L97.919 Non-pressure chronic ulcer of unspecified part of right lower leg with unspecified severity; R64 Cachexia; E44.0 Moderate protein-calorie malnutrition; Z68.1 Body mass index [BMI] 19.9 or less, adult; E46 Unspecified protein-calorie malnutrition; I83.019 Varicose veins of right lower extremity with ulcer of unspecified site; G30.9 Alzheimer's disease, unspecified; F02.80 Dementia in other diseases classified elsewhere, unspecified severity, without behavioral disturbance, psychotic disturbance, mood disturbance, and anxiety
CPT/HCPCS: 0241U-QW; 36415; 71045-TC-FY; 73630-TC-RT-FY; 80053; 82962; 85025; 85610; 85651; 85730; 86140; 86850; 86900; 86901; 87040; 87070; 87186; 87205; 93005; 93010; 93925-TC; 99285-25; C9803-CS; U0003; U0005

== ENCOUNTER 2022-12-02 10:38 | Inpatient (IN) | payer OTHER ==
[2022-12-02 10:55] VITALS: BMI 18.3
[2022-12-02 12:28] LABS: BASO % 0.2 % (0-2.0); EOS % 0.8 % (0-4.5); HEMATOCRIT 33.4 % (32.4-45.2); HEMOGLOBIN 10.6 GM/dL (10.7-15.3); LYMPH % 18.5 % (8-40); MCH 26.7 pg (25.7-33.7); MCHC 31.6 g/dl (32.0-36.0); MEAN CELL VOLUME 84.5 fl (80-96); NEUT % 72.5 % (42.8-82.8); PLATELET COUNT 304 10^3/uL (134-434); RBC 3.96 M/mm3 (3.60-5.2); RDW 16.9 % (11.6-15.6); WHITE BLOOD COUNT 6.9 K/mm3 (4.0-10.0)
[2022-12-02 12:29] LABS: VENOUS BASE EXCESS 0.9 mmol/L (-2-2); VENOUS O2 SATURATION 76.5 % (70-80); VENOUS PCO2 43.8 mmHg (38-52); VENOUS PH 7.393 (7.310-7.410)
[2022-12-02 12:35] LABS: INR 1.23 (0.83-1.09); PROTHROMBIN TIME (PATIENT) 14.2 SEC (9.7-13.0)
[2022-12-02 12:38] LABS: ACTIVATED PTT 34.3 SECONDS (25.2-36.5)
[2022-12-02] MEDS ORDERED: SODIUM CHLORIDE 1,000 ML IV STA (12:40)
[2022-12-02 12:55] LABS: CHLORIDE 105 mmol/L (98-107); SODIUM 140 mmol/L (136-145)
[2022-12-02 12:57] LABS: CALCIUM 8.9 mg/dL (8.5-10.1)
[2022-12-02 12:58] LABS: ALBUMIN 2.2 g/dl (3.4-5.0); ANION GAP 8 MMOL/L (8-16); BLOOD UREA NITROGEN 14.3 mg/dL (7-18); CO2 27 mmol/L (21-32); GLUCOSE,RANDOM 123 mg/dL (74-106)
[2022-12-02 13:01] LABS: CREATININE 0.5 mg/dL (0.55-1.3); SGOT/AST 15 U/L (15-37); SGPT/ALT 8 U/L (13-61)
[2022-12-02 13:02] LABS: TOT PROT 5.9 g/dl (6.4-8.2)
[2022-12-02 13:03] LABS: BILIRUBIN,TOTAL 0.2 mg/dL (0.2-1)
[2022-12-02 13:04] LABS: ALK PHOS 70 U/L (45-117)
[2022-12-02] MEDS ORDERED: VANCOMYCIN 1 GM in D5W (PRE-DOCKED) 1,000 MG/250 ML IVPB ONE (14:02)
[2022-12-02] MEDS ORDERED: MEROPENEM 1 GM in DEXTROSE 5%-WATER 100 ML IVPB ONE (14:02)
[2022-12-02] MEDS ORDERED: MEROPENEM 1 GM VIAL (RESTRICTED TO ID) IVPB ONE (14:27)
[2022-12-02] MEDS ORDERED: VANCOMYCIN/WATER FOR INJ (PEG) 1,000 MG/200 ML BAG IVPB ONE (14:27)
[2022-12-02 17:38] LABS: EPI CELLS 6 /uL (0-25.1); HYALINE CASTS 2 /uL (0-3.1); PH,URINE 5.5 (5.0-8.0); URINE APPEARANCE CLOUDY; URINE BACTERIA 3 /uL (0-1359); URINE BILIRUBIN NEGATIVE (NEGATIVE); URINE COLOR YELLOW; URINE GLUCOSE (UA) NEGATIVE (NEGATIVE); URINE KETONE NEGATIVE (NEGATIVE); URINE LEUK ESTERASE TRACE (NEGATIVE); URINE NITRITE NEGATIVE (NEGATIVE); URINE PROTEIN NEGATIVE (NEGATIVE); URINE RBC 19 /uL (0-23.9); URINE UROBILINOGEN 0.2 mg/dL (0.2-1.0); URINE WBC 6 /uL (0-25.8)
[2022-12-03] MEDS: APIXABAN 2.5 MG TABLET PO SCH ×3 (00:40→22:18)
[2022-12-03] MEDS: MEROPENEM 1 GM in DEXTROSE 5%-WATER 100 ML IVPB SCH ×3 (03:17→17:18)
[2022-12-03] MEDS ORDERED: ACETAMINOPHEN 325 MG TABLET (FP) PO PRN (04:35)
[2022-12-03] MEDS: amLODIPine BESYLATE 5 MG TABLET (FP) PO SCH (09:24)
[2022-12-03] MEDS: EZETIMIBE 10 MG TABLET (FP) PO SCH (09:24)
[2022-12-03] MEDS: metoPROLOL SUCCINATE 25 MG TAB.SR.24H (FP) PO SCH (09:24)
[2022-12-03] MEDS: LOSARTAN POTASSIUM 25 MG TABLET PO SCH (09:24)
[2022-12-03 11:47] LABS: BASO % 0.4 % (0-2.0); EOS % 0.6 % (0-4.5); HEMATOCRIT 32.9 % (32.4-45.2); HEMOGLOBIN 10.5 GM/dL (10.7-15.3); LYMPH % 12.8 % (8-40); MCH 27.1 pg (25.7-33.7); MEAN CELL VOLUME 84.5 fl (80-96); MEAN PLT VOLUME 8.8 fl (7.5-11.1); MONO % 6.8 % (3.8-10.2); NEUT % 79.4 % (42.8-82.8); PLATELET COUNT 317 10^3/uL (134-434); RBC 3.89 M/mm3 (3.60-5.2); RDW 16.6 % (11.6-15.6); WHITE BLOOD COUNT 8.2 K/mm3 (4.0-10.0)
[2022-12-03 12:10] LABS: BLOOD UREA NITROGEN 11.5 mg/dL (7-18)
[2022-12-03 12:14] LABS: CREATININE 0.4 mg/dL (0.55-1.3)
[2022-12-03 12:15] LABS: BILIRUBIN,TOTAL 0.3 mg/dL (0.2-1); TOT PROT 5.6 g/dl (6.4-8.2)
[2022-12-03] MEDS ORDERED: ACETAMINOPHEN 650 MG/20.3 ML ORAL SOLUTION (CUPS) PO PRN (13:51)
[2022-12-03] MEDS: COLLAGENASE CLOSTRIDIUM HIST. 30 GRAMS TUBE TP SCH (15:47)
[2022-12-03] MEDS: DONEPEZIL HCL 10 MG TABLET (FP) PO SCH (22:18)
[2022-12-04] MEDS: MEROPENEM 1 GM in DEXTROSE 5%-WATER 100 ML IVPB SCH ×2 (07:00→09:41)
[2022-12-04] MEDS: VANCOMYCIN/WATER FOR INJ (PEG) 1,000 MG/200 ML BAG IVPB SCH (08:08)
[2022-12-04] MEDS: LOSARTAN POTASSIUM 25 MG TABLET PO SCH (09:03)
[2022-12-04] MEDS: amLODIPine BESYLATE 5 MG TABLET (FP) PO SCH (09:03)
[2022-12-04] MEDS: EZETIMIBE 10 MG TABLET (FP) PO SCH (09:03)
[2022-12-04] MEDS: APIXABAN 2.5 MG TABLET PO SCH ×2 (09:04→21:30)
[2022-12-04] MEDS: metoPROLOL SUCCINATE 25 MG TAB.SR.24H (FP) PO SCH (09:04)
[2022-12-04] MEDS: COLLAGENASE CLOSTRIDIUM HIST. 30 GRAMS TUBE TP SCH (09:08)
[2022-12-04] MEDS: ERTAPENEM SODIUM 1 GM in SODIUM CHLORIDE 50 ML IVPB SCH (10:10)
[2022-12-04] MEDS ORDERED: ACETAMINOPHEN 1000 MG/100 ML BAG IVPB PRN (14:41)
[2022-12-04] MEDS: AMINO ACIDS 4.25%/D5W 1,000 ML IV SCH (18:01)
[2022-12-04] MEDS: DONEPEZIL HCL 10 MG TABLET (FP) PO SCH (21:30)
[2022-12-05] MEDS: AMINO ACIDS 4.25%/D5W 1,000 ML IV SCH ×2 (06:59→16:19)
[2022-12-05] MEDS: VANCOMYCIN/WATER FOR INJ (PEG) 1,000 MG/200 ML BAG IVPB SCH (08:51)
[2022-12-05] MEDS: amLODIPine BESYLATE 5 MG TABLET (FP) PO SCH (09:03)
[2022-12-05] MEDS: APIXABAN 2.5 MG TABLET PO SCH ×2 (09:03→21:53)
[2022-12-05] MEDS: LOSARTAN POTASSIUM 25 MG TABLET PO SCH (09:03)
[2022-12-05] MEDS: EZETIMIBE 10 MG TABLET (FP) PO SCH (09:03)
[2022-12-05] MEDS: metoPROLOL SUCCINATE 25 MG TAB.SR.24H (FP) PO SCH (09:03)
[2022-12-05] MEDS: ERTAPENEM SODIUM 1 GM in SODIUM CHLORIDE 50 ML IVPB SCH (10:55)
[2022-12-05] MEDS: DONEPEZIL HCL 10 MG TABLET (FP) PO SCH (21:53)
[2022-12-06] MEDS: AMINO ACIDS 4.25%/D5W 1,000 ML IV SCH ×2 (04:59→17:06)
[2022-12-06] MEDS: VANCOMYCIN/WATER FOR INJ (PEG) 1,000 MG/200 ML BAG IVPB SCH (08:16)
[2022-12-06] MEDS: LOSARTAN POTASSIUM 25 MG TABLET PO SCH ×2 (10:28→10:44)
[2022-12-06] MEDS: amLODIPine BESYLATE 5 MG TABLET (FP) PO SCH ×2 (10:28→10:44)
[2022-12-06] MEDS: EZETIMIBE 10 MG TABLET (FP) PO SCH ×2 (10:28→10:44)
[2022-12-06] MEDS: metoPROLOL SUCCINATE 25 MG TAB.SR.24H (FP) PO SCH ×2 (10:28→10:44)
[2022-12-06] MEDS: ERTAPENEM SODIUM 1 GM in SODIUM CHLORIDE 50 ML IVPB SCH ×2 (10:28→10:45)
[2022-12-06] MEDS: APIXABAN 2.5 MG TABLET PO SCH ×3 (10:28→21:48)
[2022-12-06] MEDS: DONEPEZIL HCL 10 MG TABLET (FP) PO SCH (21:48)
[2022-12-07] MEDS: AMINO ACIDS 4.25%/D5W 1,000 ML IV SCH ×2 (04:55→23:00)
[2022-12-07 09:14] LABS: BASO % 0.5 % (0-2.0); EOS % 1.7 % (0-4.5); HEMATOCRIT 30.1 % (32.4-45.2); HEMOGLOBIN 9.9 GM/dL (10.7-15.3); MCH 27.3 pg (25.7-33.7); MCHC 32.8 g/dl (32.0-36.0); MEAN CELL VOLUME 83.1 fl (80-96); MEAN PLT VOLUME 8.4 fl (7.5-11.1); MONO % 7.8 % (3.8-10.2); PLATELET COUNT 295 10^3/uL (134-434); RBC 3.62 M/mm3 (3.60-5.2); RDW 16.3 % (11.6-15.6); WHITE BLOOD COUNT 5.8 K/mm3 (4.0-10.0)
[2022-12-07 09:51] LABS: CALCIUM 8.9 mg/dL (8.5-10.1)
[2022-12-07 09:52] LABS: BLOOD UREA NITROGEN 20.7 mg/dL (7-18)
[2022-12-07 09:55] LABS: CREATININE 0.3 mg/dL (0.55-1.3)
[2022-12-07 09:56] LABS: BILIRUBIN,TOTAL 0.2 mg/dL (0.2-1)
[2022-12-07 09:57] LABS: TOT PROT 5.5 g/dl (6.4-8.2)
[2022-12-07] MEDS: VANCOMYCIN/WATER FOR INJ (PEG) 1,000 MG/200 ML BAG IVPB SCH (10:23)
[2022-12-07] MEDS: ERTAPENEM SODIUM 1 GM in SODIUM CHLORIDE 50 ML IVPB SCH (10:24)
[2022-12-07] MEDS: amLODIPine BESYLATE 5 MG TABLET (FP) PO SCH (10:24)
[2022-12-07] MEDS: LOSARTAN POTASSIUM 25 MG TABLET PO SCH (10:24)
[2022-12-07] MEDS: APIXABAN 2.5 MG TABLET PO SCH ×2 (10:24→21:43)
[2022-12-07] MEDS: metoPROLOL SUCCINATE 25 MG TAB.SR.24H (FP) PO SCH (10:25)
[2022-12-07] MEDS: EZETIMIBE 10 MG TABLET (FP) PO SCH (10:25)
[2022-12-07] MEDS: DONEPEZIL HCL 10 MG TABLET (FP) PO SCH (21:43)
[2022-12-08] MEDS: AMINO ACIDS 4.25%/D5W 1,000 ML IV SCH ×2 (05:15→16:08)
[2022-12-08] MEDS: VANCOMYCIN/WATER FOR INJ (PEG) 1,000 MG/200 ML BAG IVPB SCH (09:00)
[2022-12-08] MEDS: amLODIPine BESYLATE 5 MG TABLET (FP) PO SCH (09:48)
[2022-12-08] MEDS: EZETIMIBE 10 MG TABLET (FP) PO SCH (09:48)
[2022-12-08] MEDS: APIXABAN 2.5 MG TABLET PO SCH ×2 (09:49→21:35)
[2022-12-08] MEDS: LOSARTAN POTASSIUM 25 MG TABLET PO SCH (09:49)
[2022-12-08] MEDS: metoPROLOL SUCCINATE 25 MG TAB.SR.24H (FP) PO SCH (09:49)
[2022-12-08] MEDS: ERTAPENEM SODIUM 1 GM in SODIUM CHLORIDE 50 ML IVPB SCH (10:51)
[2022-12-08] MEDS: DONEPEZIL HCL 10 MG TABLET (FP) PO SCH (21:35)
[2022-12-09] MEDS: AMINO ACIDS 4.25%/D5W 1,000 ML IV SCH (05:08)
[2022-12-09] MEDS: LOSARTAN POTASSIUM 25 MG TABLET PO SCH (10:40)
[2022-12-09] MEDS: EZETIMIBE 10 MG TABLET (FP) PO SCH (10:40)
[2022-12-09] MEDS: APIXABAN 2.5 MG TABLET PO SCH (10:40)
[2022-12-09] MEDS: metoPROLOL SUCCINATE 25 MG TAB.SR.24H (FP) PO SCH (10:40)
[2022-12-09] MEDS: amLODIPine BESYLATE 5 MG TABLET (FP) PO SCH (10:40)
[2022-12-09 12:48] VITALS: BP 120/67; PULSE 94; RESP 18; TEMP 97.8
== END 2022-12-09 12:41 | disposition home or self-care (01) | DRG 299 ==
LOC: JER 10:38 → JERBED 14:05 → J6S 20:36
PROVIDERS: ADMIT Internal Medicine; ATTEND Internal Medicine
DX: I70.209 Unspecified atherosclerosis of native arteries of extremities, unspecified extremity (principal); E43 Unspecified severe protein-calorie malnutrition; L89.154 Pressure ulcer of sacral region, stage 4; R53.2 Functional quadriplegia; Z68.1 Body mass index [BMI] 19.9 or less, adult; R64 Cachexia; L98.499 Non-pressure chronic ulcer of skin of other sites with unspecified severity; F03.90 Unspecified dementia, unspecified severity, without behavioral disturbance, psychotic disturbance, mood disturbance, and anxiety
CPT/HCPCS: 0241U-QW; 36415; 71045-TC-FY; 73590-TC-LT-FY; 73590-TC-RT-FY; 80053; 81003; 82553; 82803; 84484; 85025; 85610; 85730; 87040; 87086; 87186; 93005; 93010; 99285-25

== ENCOUNTER 2023-01-15 14:39 | Inpatient (IN) | payer OTHER ==
[2023-01-15] MEDS ORDERED: VANCOMYCIN 1 GM in D5W (PRE-DOCKED) 1,000 MG/250 ML IVPB ONE (15:39)
[2023-01-15] MEDS ORDERED: SODIUM CHLORIDE 0.9% 1000 ML INFUS.BAG IV ONE (15:39)
[2023-01-15] MEDS ORDERED: ERTAPENEM SODIUM 1 GM in SODIUM CHLORIDE 50 ML IVPB ONE (15:39)
[2023-01-15 16:23] LABS: BASO % 0.3 % (0-2.0); EOS % 0.3 % (0-4.5); HEMATOCRIT 36.8 % (32.4-45.2); HEMOGLOBIN 11.7 GM/dL (10.7-15.3); LYMPH % 14.9 % (8-40); MCH 25.7 pg (25.7-33.7); MCHC 31.7 g/dl (32.0-36.0); MEAN CELL VOLUME 80.9 fl (80-96); MEAN PLT VOLUME 8.4 fl (7.5-11.1); MONO % 5.6 % (3.8-10.2); NEUT % 78.9 % (42.8-82.8); PLATELET COUNT 306 10^3/uL (134-434); RBC 4.55 M/mm3 (3.60-5.2); RDW 16.5 % (11.6-15.6)
[2023-01-15] MEDS ORDERED: ERTAPENEM SODIUM 1 GM VIAL ONE (16:27)
[2023-01-15] MEDS ORDERED: VANCOMYCIN/WATER FOR INJ (PEG) 1,000 MG/200 ML BAG IVPB ONE ×2 (16:27→18:14)
[2023-01-15 16:46] LABS: BLOOD UREA NITROGEN 24.8 mg/dL (7-18); CALCIUM 9.6 mg/dL (8.5-10.1)
[2023-01-15 16:47] LABS: ALBUMIN 2.5 g/dl (3.4-5.0)
[2023-01-15 16:50] LABS: CREATININE 0.4 mg/dL (0.55-1.3)
[2023-01-15 16:51] LABS: BILIRUBIN,TOTAL 0.4 mg/dL (0.2-1); TOT PROT 6.9 g/dl (6.4-8.2)
[2023-01-15 17:01] LABS: ERYTHROCYTE SEDIMENTATION RATE 88 mm/hr (0-30)
[2023-01-15 17:02] LABS: EPI CELLS 8 /uL (0-25.1); HYALINE CASTS 0 /uL (0-3.1); URINE APPEARANCE CLEAR; URINE BACTERIA 10 /uL (0-1359); URINE BILIRUBIN NEGATIVE (NEGATIVE); URINE COLOR YELLOW; URINE GLUCOSE (UA) NEGATIVE (NEGATIVE); URINE KETONE 1+ (NEGATIVE); URINE LEUK ESTERASE 1+ (NEGATIVE); URINE NITRITE NEGATIVE (NEGATIVE); URINE PROTEIN TRACE (NEGATIVE); URINE RBC 21 /uL (0-23.9); URINE WBC 127 /uL (0-25.8)
[2023-01-15 18:04] LABS: YEAST MODERATE (NEGATIVE)
[2023-01-15] MEDS: ACETAMINOPHEN 1000 MG/100 ML BAG IVPB PRN (22:53)
[2023-01-16] MEDS ORDERED: VANCOMYCIN/WATER FOR INJ (PEG) 750 MG/150 ML BAG IVPB SCH ×2 (06:00→10:00)
[2023-01-16] MEDS ORDERED: VANCOMYCIN 750 MG in DEXTROSE 5%-WATER - 150 ML IVPB SCH (08:00)
[2023-01-16] MEDS: ACETAMINOPHEN 1000 MG/100 ML BAG IVPB PRN (08:42)
[2023-01-16 12:59] LABS: BASO % 0.4 % (0-2.0); EOS % 0.2 % (0-4.5); HEMATOCRIT 34.2 % (32.4-45.2); HEMOGLOBIN 10.8 GM/dL (10.7-15.3); LYMPH % 11.6 % (8-40); MCH 25.7 pg (25.7-33.7); MCHC 31.6 g/dl (32.0-36.0); MEAN CELL VOLUME 81.3 fl (80-96); MEAN PLT VOLUME 8.1 fl (7.5-11.1); MONO % 6.9 % (3.8-10.2); NEUT % 80.9 % (42.8-82.8); PLATELET COUNT 285 10^3/uL (134-434); RBC 4.21 M/mm3 (3.60-5.2); RDW 16.2 % (11.6-15.6); WHITE BLOOD COUNT 7.9 K/mm3 (4.0-10.0)
[2023-01-16 13:06] LABS: INR 1.1 (0.83-1.09); PROTHROMBIN TIME (PATIENT) 12.8 SEC (9.7-13.0)
[2023-01-16 13:08] LABS: ACTIVATED PTT 30.7 SECONDS (25.2-36.5)
[2023-01-16 13:17] LABS: BLOOD UREA NITROGEN 23.6 mg/dL (7-18); CALCIUM 9.4 mg/dL (8.5-10.1); MAGNESIUM 2.2 mg/dL (1.8-2.4)
[2023-01-16 13:21] LABS: CREATININE 0.3 mg/dL (0.55-1.3)
[2023-01-16] MEDS: ERTAPENEM SODIUM 1 GM in SODIUM CHLORIDE 50 ML IVPB SCH (14:46)
[2023-01-16] MEDS: APIXABAN 2.5 MG TABLET PO SCH (21:19)
[2023-01-16] MEDS ORDERED: HEPARIN NA (PORCINE) 5,000 UNITS/ML 1ML VIAL SQ SCH (22:00)
[2023-01-17] MEDS ORDERED: VANCOMYCIN/WATER FOR INJ (PEG) 1,000 MG/250 ML BAG IVPB SCH (10:00)
[2023-01-17] MEDS: amLODIPine BESYLATE 5 MG TABLET (FP) PO SCH (10:12)
[2023-01-17] MEDS: LOSARTAN POTASSIUM 25 MG TABLET PO SCH (10:12)
[2023-01-17] MEDS: EZETIMIBE 10 MG TABLET (FP) PO SCH (10:12)
[2023-01-17] MEDS: APIXABAN 2.5 MG TABLET PO SCH ×2 (10:12→21:35)
[2023-01-17] MEDS: ERTAPENEM SODIUM 1 GM in SODIUM CHLORIDE 50 ML IVPB SCH (15:08)
[2023-01-17] MEDS: AMINO ACIDS/PROTEIN HYDROLYS 30 ML LIQUID.PKT PO SCH (16:41)
[2023-01-17] MEDS: DONEPEZIL HCL 10 MG TABLET (FP) PO SCH (21:35)
[2023-01-18] MEDS: AMINO ACIDS/PROTEIN HYDROLYS 30 ML LIQUID.PKT PO SCH ×2 (09:11→16:37)
[2023-01-18] MEDS: MULTIVIT-MINERALS ORAL LIQUID PO SCH (09:12)
[2023-01-18] MEDS: EZETIMIBE 10 MG TABLET (FP) PO SCH (09:12)
[2023-01-18] MEDS: amLODIPine BESYLATE 5 MG TABLET (FP) PO SCH (09:12)
[2023-01-18] MEDS: LOSARTAN POTASSIUM 25 MG TABLET PO SCH (09:12)
[2023-01-18] MEDS: APIXABAN 2.5 MG TABLET PO SCH ×2 (09:12→21:14)
[2023-01-18] MEDS: ERTAPENEM SODIUM 1 GM in SODIUM CHLORIDE 50 ML IVPB SCH (14:17)
[2023-01-18] MEDS: DONEPEZIL HCL 10 MG TABLET (FP) PO SCH (21:14)
[2023-01-19] MEDS: AMINO ACIDS/PROTEIN HYDROLYS 30 ML LIQUID.PKT PO SCH ×2 (08:31→17:59)
[2023-01-19] MEDS: CEFTRIAXONE 1 GM in DEXTROSE 5%-WATER - 50 ML IVPB SCH (10:21)
[2023-01-19] MEDS: MULTIVIT-MINERALS ORAL LIQUID PO SCH (10:23)
[2023-01-19] MEDS: EZETIMIBE 10 MG TABLET (FP) PO SCH (10:23)
[2023-01-19] MEDS: LOSARTAN POTASSIUM 25 MG TABLET PO SCH (10:23)
[2023-01-19] MEDS: APIXABAN 2.5 MG TABLET PO SCH ×2 (10:23→21:23)
[2023-01-19] MEDS: amLODIPine BESYLATE 5 MG TABLET (FP) PO SCH (10:23)
[2023-01-19] MEDS: DONEPEZIL HCL 10 MG TABLET (FP) PO SCH (21:23)
[2023-01-20] MEDS ORDERED: INSULIN (LEVEMIR) 100 UNITS/ML UNITS SQ ONE (07:13)
[2023-01-20] MEDS: AMINO ACIDS/PROTEIN HYDROLYS 30 ML LIQUID.PKT PO SCH ×2 (08:54→17:13)
[2023-01-20] MEDS: LOSARTAN POTASSIUM 25 MG TABLET PO SCH (08:59)
[2023-01-20] MEDS: MULTIVIT-MINERALS ORAL LIQUID PO SCH (09:00)
[2023-01-20] MEDS: APIXABAN 2.5 MG TABLET PO SCH ×2 (09:00→21:41)
[2023-01-20] MEDS: amLODIPine BESYLATE 5 MG TABLET (FP) PO SCH (09:00)
[2023-01-20] MEDS: EZETIMIBE 10 MG TABLET (FP) PO SCH (09:00)
[2023-01-20] MEDS: CEFTRIAXONE 1 GM in DEXTROSE 5%-WATER - 50 ML IVPB SCH (09:21)
[2023-01-20] MEDS ORDERED: FENTANYL PATCH WASTE TD PRN (12:00)
[2023-01-20] MEDS: fentaNYL 12mcg/hr PATCH.TD72 TD SCH (12:32)
[2023-01-20] MEDS: DONEPEZIL HCL 10 MG TABLET (FP) PO SCH (21:41)
[2023-01-21] MEDS: AMINO ACIDS/PROTEIN HYDROLYS 30 ML LIQUID.PKT PO SCH ×2 (08:40→16:55)
[2023-01-21] MEDS: MULTIVIT-MINERALS ORAL LIQUID PO SCH (10:28)
[2023-01-21] MEDS: amLODIPine BESYLATE 5 MG TABLET (FP) PO SCH (10:28)
[2023-01-21] MEDS: APIXABAN 2.5 MG TABLET PO SCH ×2 (10:28→21:29)
[2023-01-21] MEDS: LOSARTAN POTASSIUM 25 MG TABLET PO SCH (10:28)
[2023-01-21] MEDS: EZETIMIBE 10 MG TABLET (FP) PO SCH (10:29)
[2023-01-21] MEDS: CEFTRIAXONE 1 GM in DEXTROSE 5%-WATER - 50 ML IVPB SCH (10:52)
[2023-01-21] MEDS: DONEPEZIL HCL 10 MG TABLET (FP) PO SCH (21:29)
[2023-01-22] MEDS: AMINO ACIDS/PROTEIN HYDROLYS 30 ML LIQUID.PKT PO SCH ×2 (08:46→16:54)
[2023-01-22] MEDS: LOSARTAN POTASSIUM 25 MG TABLET PO SCH (10:04)
[2023-01-22] MEDS: amLODIPine BESYLATE 5 MG TABLET (FP) PO SCH (10:04)
[2023-01-22] MEDS: EZETIMIBE 10 MG TABLET (FP) PO SCH (10:04)
[2023-01-22] MEDS: MULTIVIT-MINERALS ORAL LIQUID PO SCH (10:05)
[2023-01-22] MEDS: APIXABAN 2.5 MG TABLET PO SCH ×2 (10:05→22:45)
[2023-01-22] MEDS: metoPROLOL SUCCINATE 25 MG TAB.SR.24H (FP) PO SCH (10:05)
[2023-01-22] MEDS: CEFTRIAXONE 1 GM in DEXTROSE 5%-WATER - 50 ML IVPB SCH (10:06)
[2023-01-22] MEDS ORDERED: INSULIN (NOVOLOG) ASPART 100 UNITS/ML 10ML VIAL ONE (11:18)
[2023-01-22] MEDS: DONEPEZIL HCL 10 MG TABLET (FP) PO SCH (22:45)
[2023-01-22 23:50] VITALS: BMI 15.6
[2023-01-23] MEDS: AMINO ACIDS/PROTEIN HYDROLYS 30 ML LIQUID.PKT PO SCH ×2 (07:57→17:57)
[2023-01-23] MEDS: LOSARTAN POTASSIUM 25 MG TABLET PO SCH (10:25)
[2023-01-23] MEDS: amLODIPine BESYLATE 5 MG TABLET (FP) PO SCH (10:25)
[2023-01-23] MEDS: APIXABAN 2.5 MG TABLET PO SCH ×2 (10:25→21:38)
[2023-01-23] MEDS: MULTIVIT-MINERALS ORAL LIQUID PO SCH (10:25)
[2023-01-23] MEDS: CEFTRIAXONE 1 GM in DEXTROSE 5%-WATER - 50 ML IVPB SCH (10:26)
[2023-01-23] MEDS: EZETIMIBE 10 MG TABLET (FP) PO SCH (10:26)
[2023-01-23] MEDS: metoPROLOL SUCCINATE 25 MG TAB.SR.24H (FP) PO SCH (10:26)
[2023-01-23] MEDS: fentaNYL 12mcg/hr PATCH.TD72 TD SCH (12:15)
[2023-01-23] MEDS: DONEPEZIL HCL 10 MG TABLET (FP) PO SCH (21:38)
[2023-01-24] MEDS: amLODIPine BESYLATE 5 MG TABLET (FP) PO SCH ×2 (09:17→09:28)
[2023-01-24] MEDS: CEFTRIAXONE 1 GM in DEXTROSE 5%-WATER - 50 ML IVPB SCH (09:17)
[2023-01-24] MEDS: metoPROLOL SUCCINATE 25 MG TAB.SR.24H (FP) PO SCH ×2 (09:17→09:28)
[2023-01-24] MEDS: AMINO ACIDS/PROTEIN HYDROLYS 30 ML LIQUID.PKT PO SCH ×3 (09:17→16:52)
[2023-01-24] MEDS: EZETIMIBE 10 MG TABLET (FP) PO SCH ×2 (09:17→09:28)
[2023-01-24] MEDS: APIXABAN 2.5 MG TABLET PO SCH ×3 (09:17→23:14)
[2023-01-24] MEDS: LOSARTAN POTASSIUM 25 MG TABLET PO SCH ×2 (09:17→09:28)
[2023-01-24] MEDS: MULTIVIT-MINERALS ORAL LIQUID PO SCH ×2 (09:17→09:28)
[2023-01-24] MEDS: DONEPEZIL HCL 10 MG TABLET (FP) PO SCH (23:14)
[2023-01-25] MEDS: CEFTRIAXONE 1 GM in DEXTROSE 5%-WATER - 50 ML IVPB SCH (10:23)
[2023-01-25] MEDS: amLODIPine BESYLATE 5 MG TABLET (FP) PO SCH (10:35)
[2023-01-25] MEDS: metoPROLOL SUCCINATE 25 MG TAB.SR.24H (FP) PO SCH (10:35)
[2023-01-25] MEDS: APIXABAN 2.5 MG TABLET PO SCH ×2 (10:35→21:56)
[2023-01-25] MEDS: MULTIVIT-MINERALS ORAL LIQUID PO SCH (10:36)
[2023-01-25] MEDS: AMINO ACIDS/PROTEIN HYDROLYS 30 ML LIQUID.PKT PO SCH ×3 (10:36→18:24)
[2023-01-25] MEDS: LOSARTAN POTASSIUM 25 MG TABLET PO SCH (10:36)
[2023-01-25] MEDS: EZETIMIBE 10 MG TABLET (FP) PO SCH (10:36)
[2023-01-25] MEDS: COLLAGENASE CLOSTRIDIUM HIST. 30 GRAMS TUBE TP SCH (21:56)
[2023-01-25] MEDS: DONEPEZIL HCL 10 MG TABLET (FP) PO SCH (21:56)
[2023-01-26] MEDS: APIXABAN 2.5 MG TABLET PO SCH ×2 (11:26→22:19)
[2023-01-26] MEDS: metoPROLOL SUCCINATE 25 MG TAB.SR.24H (FP) PO SCH (11:26)
[2023-01-26] MEDS: EZETIMIBE 10 MG TABLET (FP) PO SCH (11:26)
[2023-01-26] MEDS: MULTIVIT-MINERALS ORAL LIQUID PO SCH (11:26)
[2023-01-26] MEDS: AMINO ACIDS/PROTEIN HYDROLYS 30 ML LIQUID.PKT PO SCH ×2 (11:26→17:23)
[2023-01-26] MEDS: LOSARTAN POTASSIUM 25 MG TABLET PO SCH (11:27)
[2023-01-26] MEDS: amLODIPine BESYLATE 5 MG TABLET (FP) PO SCH (11:27)
[2023-01-26] MEDS: COLLAGENASE CLOSTRIDIUM HIST. 30 GRAMS TUBE TP SCH (14:00)
[2023-01-26] MEDS: fentaNYL 12mcg/hr PATCH.TD72 TD SCH (14:00)
[2023-01-26] MEDS: DONEPEZIL HCL 10 MG TABLET (FP) PO SCH (22:19)
[2023-01-27] MEDS: AMINO ACIDS/PROTEIN HYDROLYS 30 ML LIQUID.PKT PO SCH ×2 (10:17→17:41)
[2023-01-27] MEDS: LOSARTAN POTASSIUM 25 MG TABLET PO SCH (10:17)
[2023-01-27] MEDS: EZETIMIBE 10 MG TABLET (FP) PO SCH (10:17)
[2023-01-27] MEDS: amLODIPine BESYLATE 5 MG TABLET (FP) PO SCH (10:17)
[2023-01-27] MEDS: metoPROLOL SUCCINATE 25 MG TAB.SR.24H (FP) PO SCH (10:17)
[2023-01-27] MEDS: APIXABAN 2.5 MG TABLET PO SCH ×2 (10:17→21:36)
[2023-01-27] MEDS: MULTIVIT-MINERALS ORAL LIQUID PO SCH (10:18)
[2023-01-27] MEDS: COLLAGENASE CLOSTRIDIUM HIST. 30 GRAMS TUBE TP SCH (14:22)
[2023-01-27] MEDS: DONEPEZIL HCL 10 MG TABLET (FP) PO SCH (21:36)
[2023-01-27 22:34] VITALS: RESP 18
[2023-01-28] MEDS: amLODIPine BESYLATE 5 MG TABLET (FP) PO SCH (10:11)
[2023-01-28] MEDS: AMINO ACIDS/PROTEIN HYDROLYS 30 ML LIQUID.PKT PO SCH ×2 (10:11→17:37)
[2023-01-28] MEDS: EZETIMIBE 10 MG TABLET (FP) PO SCH (10:12)
[2023-01-28] MEDS: APIXABAN 2.5 MG TABLET PO SCH ×2 (10:12→23:19)
[2023-01-28] MEDS: LOSARTAN POTASSIUM 25 MG TABLET PO SCH (10:12)
[2023-01-28] MEDS: metoPROLOL SUCCINATE 25 MG TAB.SR.24H (FP) PO SCH (10:12)
[2023-01-28] MEDS: MULTIVIT-MINERALS ORAL LIQUID PO SCH (10:13)
[2023-01-28] MEDS: COLLAGENASE CLOSTRIDIUM HIST. 30 GRAMS TUBE TP SCH (10:14)
[2023-01-28] MEDS: DONEPEZIL HCL 10 MG TABLET (FP) PO SCH (23:25)
[2023-01-29] MEDS: AMINO ACIDS/PROTEIN HYDROLYS 30 ML LIQUID.PKT PO SCH (09:54)
[2023-01-29] MEDS: LOSARTAN POTASSIUM 25 MG TABLET PO SCH (09:54)
[2023-01-29] MEDS: EZETIMIBE 10 MG TABLET (FP) PO SCH (09:54)
[2023-01-29] MEDS: metoPROLOL SUCCINATE 25 MG TAB.SR.24H (FP) PO SCH (09:54)
[2023-01-29] MEDS: MULTIVIT-MINERALS ORAL LIQUID PO SCH (09:54)
[2023-01-29] MEDS: APIXABAN 2.5 MG TABLET PO SCH (09:54)
[2023-01-29] MEDS: amLODIPine BESYLATE 5 MG TABLET (FP) PO SCH (09:54)
[2023-01-29] MEDS: COLLAGENASE CLOSTRIDIUM HIST. 30 GRAMS TUBE TP SCH (11:45)
[2023-01-29 19:50] VITALS: BP 128/81; PULSE 80; TEMP 98.2
== END 2023-01-29 11:50 | disposition home health service (06) | DRG 264 ==
LOC: JER 14:39 → JERBED 16:20 → J6S 21:05 → J7W 01-22 17:29
PROVIDERS: ADMIT Internal Medicine; ATTEND Internal Medicine
PROC: 0JBP0ZZ Excision of Left Lower Leg Subcutaneous Tissue and Fascia, Open Approach (ICD-10-PCS; principal; 2023-01-25)
DX: I73.9 Peripheral vascular disease, unspecified (principal); E43 Unspecified severe protein-calorie malnutrition; R53.2 Functional quadriplegia; L89.154 Pressure ulcer of sacral region, stage 4; L97.228 Non-pressure chronic ulcer of left calf with other specified severity; Z68.1 Body mass index [BMI] 19.9 or less, adult; R64 Cachexia; L97.829 Non-pressure chronic ulcer of other part of left lower leg with unspecified severity; F03.90 Unspecified dementia, unspecified severity, without behavioral disturbance, psychotic disturbance, mood disturbance, and anxiety; I10 Essential (primary) hypertension; Z86.718 Personal history of other venous thrombosis and embolism; Z88.0 Allergy status to penicillin; E88.09 Other disorders of plasma-protein metabolism, not elsewhere classified; L89.620 Pressure ulcer of left heel, unstageable
CPT/HCPCS: 36415; 71045-TC-FY; 73590-TC-LT-FY; 73590-TC-RT-FY; 73610-TC-LT-FY; 73610-TC-RT-FY; 73630-TC-LT; 73630-TC-RT-FY; 80048; 80053; 81003; 83605; 83735; 84100; 85025; 85610; 85651; 85730; 86140; 86850; 86900; 86901; 87040; 87070; 87077; 87086; 87186; 87205; 93005; 93010; 99285-25; C9803-CS; E0372; U0003; U0005

== ENCOUNTER 2023-02-10 13:18 | Inpatient (IN) | payer OTHER ==
[2023-02-10] MEDS ORDERED: ERTAPENEM SODIUM 1 GM in SODIUM CHLORIDE 50 ML IVPB ONE (14:15)
[2023-02-10] MEDS ORDERED: VANCOMYCIN 1 GM in D5W (PRE-DOCKED) 1,000 MG/250 ML IVPB ONE (14:15)
[2023-02-10] MEDS ORDERED: ERTAPENEM SODIUM 1 GM VIAL ONE (14:25)
[2023-02-10] MEDS ORDERED: DEXTROSE 5%-WATER 100 ML IVPB ONE (14:26)
[2023-02-10] MEDS ORDERED: VANCOMYCIN/WATER FOR INJ (PEG) 1,000 MG/200 ML BAG IVPB ONE (14:26)
[2023-02-10 15:03] LABS: BASO % 0.3 % (0-2.0); EOS % 0.6 % (0-4.5); HEMATOCRIT 36.5 % (32.4-45.2); LYMPH % 11.8 % (8-40); MCH 26.3 pg (25.7-33.7); MCHC 32.8 g/dl (32.0-36.0); MEAN CELL VOLUME 80.1 fl (80-96); MEAN PLT VOLUME 8.9 fl (7.5-11.1); NEUT % 83.3 % (42.8-82.8); PLATELET COUNT 209 10^3/uL (134-434); RBC 4.55 M/mm3 (3.60-5.2); RDW 17.2 % (11.6-15.6); WHITE BLOOD COUNT 8.5 K/mm3 (4.0-10.0)
[2023-02-10 15:05] LABS: INR 1.35 (0.83-1.09); PROTHROMBIN TIME (PATIENT) 15.6 SEC (9.7-13.0)
[2023-02-10 15:22] LABS: CALCIUM 8.8 mg/dL (8.5-10.1)
[2023-02-10 15:23] LABS: ALBUMIN 2.2 g/dl (3.4-5.0); BLOOD UREA NITROGEN 13.6 mg/dL (7-18)
[2023-02-10 15:26] LABS: CREATININE 0.5 mg/dL (0.55-1.3)
[2023-02-10 15:27] LABS: TOT PROT 6.3 g/dl (6.4-8.2)
[2023-02-10 15:28] LABS: BILIRUBIN,TOTAL 0.4 mg/dL (0.2-1)
[2023-02-10] MEDS ORDERED: ACETAMINOPHEN 1000 MG/100 ML BAG IVPB PRN (17:51)
[2023-02-10 18:16] LABS: EPI CELLS 7 /uL (0-25.1); HYALINE CASTS 1 /uL (0-3.1); PH,URINE 5.5 (5.0-8.0); URINE APPEARANCE CLEAR; URINE BACTERIA 6 /uL (0-1359); URINE BILIRUBIN NEGATIVE (NEGATIVE); URINE COLOR YELLOW; URINE GLUCOSE (UA) NEGATIVE (NEGATIVE); URINE KETONE NEGATIVE (NEGATIVE); URINE LEUK ESTERASE TRACE (NEGATIVE); URINE NITRITE NEGATIVE (NEGATIVE); URINE PROTEIN TRACE (NEGATIVE); URINE RBC 11 /uL (0-23.9); URINE WBC 31 /uL (0-25.8)
[2023-02-10 18:21] LABS: YEAST FEW (NEGATIVE)
[2023-02-10] MEDS ORDERED: ACETAMINOPHEN INJECTION 100 ML IVPB ONE (19:48)
[2023-02-10] MEDS: SODIUM CHLORIDE 1,000 ML IV SCH (19:55)
[2023-02-10] MEDS: MELATONIN 1 MG TABLET PO SCH (22:57)
[2023-02-10] MEDS: APIXABAN 2.5 MG TABLET PO SCH (22:57)
[2023-02-11 04:01] VITALS: BMI 18.1
[2023-02-11] MEDS ORDERED: ENOXAPARIN NA (PORCINE) 40 MG/0.4 ML DISP.SYRIN SQ SCH (10:00)
[2023-02-11] MEDS ORDERED: ERTAPENEM SODIUM 1 GM in SODIUM CHLORIDE 50 ML IVPB SCH (10:00)
[2023-02-11 10:22] LABS: BASO % 0.4 % (0-2.0); EOS % 0.8 % (0-4.5); HEMATOCRIT 30.9 % (32.4-45.2); HEMOGLOBIN 10.4 GM/dL (10.7-15.3); LYMPH % 11.1 % (8-40); MCH 26.8 pg (25.7-33.7); MCHC 33.6 g/dl (32.0-36.0); MEAN CELL VOLUME 79.7 fl (80-96); MEAN PLT VOLUME 8.2 fl (7.5-11.1); MONO % 5.2 % (3.8-10.2); NEUT % 82.5 % (42.8-82.8); PLATELET COUNT 213 10^3/uL (134-434); RBC 3.87 M/mm3 (3.60-5.2); WHITE BLOOD COUNT 7.7 K/mm3 (4.0-10.0)
[2023-02-11 10:43] LABS: BLOOD UREA NITROGEN 17.3 mg/dL (7-18)
[2023-02-11 10:46] LABS: CALCIUM 8.7 mg/dL (8.5-10.1); CREATININE 0.3 mg/dL (0.55-1.3); PHOSPHOROUS 3.3 mg/dL (2.5-4.9)
[2023-02-11 10:48] LABS: BILIRUBIN,TOTAL 0.4 mg/dL (0.2-1); TOT PROT 5.8 g/dl (6.4-8.2)
[2023-02-11] MEDS: DONEPEZIL HCL 10 MG TABLET (FP) PO SCH (10:49)
[2023-02-11] MEDS: APIXABAN 2.5 MG TABLET PO SCH ×2 (10:50→21:59)
[2023-02-11] MEDS: amLODIPine BESYLATE 5 MG TABLET (FP) PO SCH (10:50)
[2023-02-11] MEDS: LOSARTAN POTASSIUM 25 MG TABLET PO SCH (10:50)
[2023-02-11] MEDS: metoPROLOL SUCCINATE 25 MG TAB.SR.24H (FP) PO SCH (10:50)
[2023-02-11] MEDS: EZETIMIBE 10 MG TABLET (FP) PO SCH (10:51)
[2023-02-11] MEDS: SODIUM CHLORIDE 1,000 ML IV SCH (17:32)
[2023-02-11] MEDS: MELATONIN 1 MG TABLET PO SCH (21:59)
[2023-02-12] MEDS ORDERED: FENTANYL PATCH WASTE TD PRN (10:01)
[2023-02-12] MEDS: APIXABAN 2.5 MG TABLET PO SCH ×2 (10:53→21:34)
[2023-02-12] MEDS: LOSARTAN POTASSIUM 25 MG TABLET PO SCH (10:53)
[2023-02-12] MEDS: DONEPEZIL HCL 10 MG TABLET (FP) PO SCH (10:53)
[2023-02-12] MEDS: amLODIPine BESYLATE 5 MG TABLET (FP) PO SCH (10:53)
[2023-02-12] MEDS: metoPROLOL SUCCINATE 25 MG TAB.SR.24H (FP) PO SCH (10:53)
[2023-02-12] MEDS: fentaNYL 12mcg/hr PATCH.TD72 TD SCH (10:54)
[2023-02-12] MEDS: EZETIMIBE 10 MG TABLET (FP) PO SCH (10:54)
[2023-02-12] MEDS: COLLAGENASE CLOSTRIDIUM HIST. 30 GRAMS TUBE TP SCH (13:29)
[2023-02-12] MEDS: AMINO ACIDS/PROTEIN HYDROLYS 30 ML LIQUID.PKT PO SCH (17:56)
[2023-02-12] MEDS: MELATONIN 1 MG TABLET PO SCH (21:34)
[2023-02-13] MEDS: AMINO ACIDS/PROTEIN HYDROLYS 30 ML LIQUID.PKT PO SCH ×2 (08:46→17:14)
[2023-02-13] MEDS: APIXABAN 2.5 MG TABLET PO SCH ×2 (09:03→21:22)
[2023-02-13] MEDS: amLODIPine BESYLATE 5 MG TABLET (FP) PO SCH (09:03)
[2023-02-13] MEDS: LOSARTAN POTASSIUM 25 MG TABLET PO SCH (09:03)
[2023-02-13] MEDS: DONEPEZIL HCL 10 MG TABLET (FP) PO SCH (09:03)
[2023-02-13] MEDS: metoPROLOL SUCCINATE 25 MG TAB.SR.24H (FP) PO SCH (09:03)
[2023-02-13] MEDS: EZETIMIBE 10 MG TABLET (FP) PO SCH (09:03)
[2023-02-13] MEDS: MULTIVITAMINS (DAILY MVI) TABLET (FP) PO SCH (09:30)
[2023-02-13] MEDS: ASCORBIC ACID 250 MG TABLET (FP) PO SCH (09:30)
[2023-02-13] MEDS: COLLAGENASE CLOSTRIDIUM HIST. 30 GRAMS TUBE TP SCH (09:47)
[2023-02-13] MEDS: MELATONIN 1 MG TABLET PO SCH (21:22)
[2023-02-14] MEDS: AMINO ACIDS/PROTEIN HYDROLYS 30 ML LIQUID.PKT PO SCH ×2 (08:08→16:36)
[2023-02-14] MEDS: DONEPEZIL HCL 10 MG TABLET (FP) PO SCH (09:57)
[2023-02-14] MEDS: APIXABAN 2.5 MG TABLET PO SCH ×2 (09:57→20:59)
[2023-02-14] MEDS: amLODIPine BESYLATE 5 MG TABLET (FP) PO SCH (09:57)
[2023-02-14] MEDS: metoPROLOL SUCCINATE 25 MG TAB.SR.24H (FP) PO SCH (09:57)
[2023-02-14] MEDS: EZETIMIBE 10 MG TABLET (FP) PO SCH (09:57)
[2023-02-14] MEDS: LOSARTAN POTASSIUM 25 MG TABLET PO SCH (09:57)
[2023-02-14] MEDS: ASCORBIC ACID 250 MG TABLET (FP) PO SCH (09:57)
[2023-02-14] MEDS: MULTIVITAMINS (DAILY MVI) TABLET (FP) PO SCH (09:58)
[2023-02-14] MEDS: COLLAGENASE CLOSTRIDIUM HIST. 30 GRAMS TUBE TP SCH (10:36)
[2023-02-14] MEDS: MELATONIN 1 MG TABLET PO SCH (20:59)
[2023-02-15] MEDS: AMINO ACIDS/PROTEIN HYDROLYS 30 ML LIQUID.PKT PO SCH ×2 (08:45→17:23)
[2023-02-15] MEDS: MULTIVITAMINS (DAILY MVI) TABLET (FP) PO SCH (10:03)
[2023-02-15] MEDS: DONEPEZIL HCL 10 MG TABLET (FP) PO SCH (10:03)
[2023-02-15] MEDS: APIXABAN 2.5 MG TABLET PO SCH ×2 (10:03→23:29)
[2023-02-15] MEDS: amLODIPine BESYLATE 5 MG TABLET (FP) PO SCH (10:03)
[2023-02-15] MEDS: LOSARTAN POTASSIUM 25 MG TABLET PO SCH (10:03)
[2023-02-15] MEDS: ASCORBIC ACID 250 MG TABLET (FP) PO SCH (10:03)
[2023-02-15] MEDS: fentaNYL 12mcg/hr PATCH.TD72 TD SCH (10:04)
[2023-02-15] MEDS: metoPROLOL SUCCINATE 25 MG TAB.SR.24H (FP) PO SCH (10:04)
[2023-02-15] MEDS: EZETIMIBE 10 MG TABLET (FP) PO SCH (10:06)
[2023-02-15] MEDS: COLLAGENASE CLOSTRIDIUM HIST. 30 GRAMS TUBE TP SCH (15:25)
[2023-02-15] MEDS: MELATONIN 1 MG TABLET PO SCH (23:29)
[2023-02-16] MEDS ORDERED: INSULIN (NOVOLOG) ASPART 100 UNITS/ML 10ML VIAL ONE (06:57)
[2023-02-16] MEDS ORDERED: INSULIN (LEVEMIR) 100 UNITS/ML UNITS SQ ONE (06:57)
[2023-02-16] MEDS: EZETIMIBE 10 MG TABLET (FP) PO SCH (09:05)
[2023-02-16] MEDS: APIXABAN 2.5 MG TABLET PO SCH ×2 (09:05→21:53)
[2023-02-16] MEDS: AMINO ACIDS/PROTEIN HYDROLYS 30 ML LIQUID.PKT PO SCH ×2 (09:05→17:37)
[2023-02-16] MEDS: amLODIPine BESYLATE 5 MG TABLET (FP) PO SCH (09:06)
[2023-02-16] MEDS: LOSARTAN POTASSIUM 25 MG TABLET PO SCH (09:06)
[2023-02-16] MEDS: MULTIVITAMINS (DAILY MVI) TABLET (FP) PO SCH (09:06)
[2023-02-16] MEDS: DONEPEZIL HCL 10 MG TABLET (FP) PO SCH (09:06)
[2023-02-16] MEDS: metoPROLOL SUCCINATE 25 MG TAB.SR.24H (FP) PO SCH (09:06)
[2023-02-16] MEDS: ASCORBIC ACID 250 MG TABLET (FP) PO SCH (09:06)
[2023-02-16] MEDS: COLLAGENASE CLOSTRIDIUM HIST. 30 GRAMS TUBE TP SCH (10:42)
[2023-02-16] MEDS: MELATONIN 1 MG TABLET PO SCH (21:53)
[2023-02-17] MEDS: AMINO ACIDS/PROTEIN HYDROLYS 30 ML LIQUID.PKT PO SCH ×2 (08:57→17:19)
[2023-02-17] MEDS: DONEPEZIL HCL 10 MG TABLET (FP) PO SCH (09:11)
[2023-02-17] MEDS: metoPROLOL SUCCINATE 25 MG TAB.SR.24H (FP) PO SCH (09:11)
[2023-02-17] MEDS: amLODIPine BESYLATE 5 MG TABLET (FP) PO SCH (09:11)
[2023-02-17] MEDS: APIXABAN 2.5 MG TABLET PO SCH ×2 (09:11→22:17)
[2023-02-17] MEDS: LOSARTAN POTASSIUM 25 MG TABLET PO SCH (09:11)
[2023-02-17] MEDS: EZETIMIBE 10 MG TABLET (FP) PO SCH (09:11)
[2023-02-17] MEDS: ASCORBIC ACID 250 MG TABLET (FP) PO SCH (09:11)
[2023-02-17] MEDS: MULTIVITAMINS (DAILY MVI) TABLET (FP) PO SCH (09:12)
[2023-02-17] MEDS: COLLAGENASE CLOSTRIDIUM HIST. 30 GRAMS TUBE TP SCH (09:12)
[2023-02-17] MEDS ORDERED: FENTANYL PATCH WASTE TD PRN (16:19)
[2023-02-17] MEDS: fentaNYL 25mcg/hr PATCH.TD72 TD SCH (17:14)
[2023-02-17] MEDS: MELATONIN 1 MG TABLET PO SCH (22:17)
[2023-02-18] MEDS: AMINO ACIDS/PROTEIN HYDROLYS 30 ML LIQUID.PKT PO SCH ×2 (09:02→17:29)
[2023-02-18] MEDS: EZETIMIBE 10 MG TABLET (FP) PO SCH (09:16)
[2023-02-18] MEDS: amLODIPine BESYLATE 5 MG TABLET (FP) PO SCH (09:16)
[2023-02-18] MEDS: MULTIVITAMINS (DAILY MVI) TABLET (FP) PO SCH (09:16)
[2023-02-18] MEDS: ASCORBIC ACID 250 MG TABLET (FP) PO SCH (09:16)
[2023-02-18] MEDS: LOSARTAN POTASSIUM 25 MG TABLET PO SCH (09:16)
[2023-02-18] MEDS: APIXABAN 2.5 MG TABLET PO SCH ×2 (09:17→21:30)
[2023-02-18] MEDS: DONEPEZIL HCL 10 MG TABLET (FP) PO SCH (09:17)
[2023-02-18] MEDS: metoPROLOL SUCCINATE 25 MG TAB.SR.24H (FP) PO SCH (09:17)
[2023-02-18] MEDS: COLLAGENASE CLOSTRIDIUM HIST. 30 GRAMS TUBE TP SCH (09:28)
[2023-02-18] MEDS: MELATONIN 1 MG TABLET PO SCH (21:30)
[2023-02-19] MEDS: DONEPEZIL HCL 10 MG TABLET (FP) PO SCH (10:40)
[2023-02-19] MEDS: amLODIPine BESYLATE 5 MG TABLET (FP) PO SCH (10:40)
[2023-02-19] MEDS: EZETIMIBE 10 MG TABLET (FP) PO SCH (10:40)
[2023-02-19] MEDS: ASCORBIC ACID 250 MG TABLET (FP) PO SCH (10:40)
[2023-02-19] MEDS: MULTIVITAMINS (DAILY MVI) TABLET (FP) PO SCH (10:40)
[2023-02-19] MEDS: AMINO ACIDS/PROTEIN HYDROLYS 30 ML LIQUID.PKT PO SCH ×3 (10:40→18:13)
[2023-02-19] MEDS: metoPROLOL SUCCINATE 25 MG TAB.SR.24H (FP) PO SCH (10:40)
[2023-02-19] MEDS: APIXABAN 2.5 MG TABLET PO SCH ×2 (10:40→22:56)
[2023-02-19] MEDS: LOSARTAN POTASSIUM 25 MG TABLET PO SCH (10:40)
[2023-02-19] MEDS: COLLAGENASE CLOSTRIDIUM HIST. 30 GRAMS TUBE TP SCH (10:51)
[2023-02-19] MEDS: MELATONIN 1 MG TABLET PO SCH (22:56)
[2023-02-20] MEDS: LOSARTAN POTASSIUM 25 MG TABLET PO SCH (10:34)
[2023-02-20] MEDS: metoPROLOL SUCCINATE 25 MG TAB.SR.24H (FP) PO SCH (10:34)
[2023-02-20] MEDS: EZETIMIBE 10 MG TABLET (FP) PO SCH (10:34)
[2023-02-20] MEDS: MULTIVITAMINS (DAILY MVI) TABLET (FP) PO SCH (10:34)
[2023-02-20] MEDS: APIXABAN 2.5 MG TABLET PO SCH ×2 (10:34→21:35)
[2023-02-20] MEDS: amLODIPine BESYLATE 5 MG TABLET (FP) PO SCH (10:34)
[2023-02-20] MEDS: DONEPEZIL HCL 10 MG TABLET (FP) PO SCH (10:34)
[2023-02-20] MEDS: AMINO ACIDS/PROTEIN HYDROLYS 30 ML LIQUID.PKT PO SCH ×3 (10:34→17:21)
[2023-02-20] MEDS: ASCORBIC ACID 250 MG TABLET (FP) PO SCH (10:34)
[2023-02-20] MEDS: COLLAGENASE CLOSTRIDIUM HIST. 30 GRAMS TUBE TP SCH (10:41)
[2023-02-20] MEDS: fentaNYL 25mcg/hr PATCH.TD72 TD SCH (17:21)
[2023-02-20] MEDS: MELATONIN 1 MG TABLET PO SCH (21:35)
[2023-02-21] MEDS: AMINO ACIDS/PROTEIN HYDROLYS 30 ML LIQUID.PKT PO SCH ×3 (08:55→17:21)
[2023-02-21] MEDS: EZETIMIBE 10 MG TABLET (FP) PO SCH (10:43)
[2023-02-21] MEDS: amLODIPine BESYLATE 5 MG TABLET (FP) PO SCH (10:43)
[2023-02-21] MEDS: APIXABAN 2.5 MG TABLET PO SCH ×2 (10:43→21:39)
[2023-02-21] MEDS: metoPROLOL SUCCINATE 25 MG TAB.SR.24H (FP) PO SCH (10:43)
[2023-02-21] MEDS: ASCORBIC ACID 250 MG TABLET (FP) PO SCH (10:43)
[2023-02-21] MEDS: LOSARTAN POTASSIUM 25 MG TABLET PO SCH (10:43)
[2023-02-21] MEDS: COLLAGENASE CLOSTRIDIUM HIST. 30 GRAMS TUBE TP SCH (10:43)
[2023-02-21] MEDS: DONEPEZIL HCL 10 MG TABLET (FP) PO SCH (10:43)
[2023-02-21] MEDS: MULTIVITAMINS (DAILY MVI) TABLET (FP) PO SCH (10:43)
[2023-02-21] MEDS: MELATONIN 1 MG TABLET PO SCH (21:39)
[2023-02-22] MEDS: AMINO ACIDS/PROTEIN HYDROLYS 30 ML LIQUID.PKT PO SCH ×3 (08:22→17:04)
[2023-02-22] MEDS: amLODIPine BESYLATE 5 MG TABLET (FP) PO SCH (10:25)
[2023-02-22] MEDS: LOSARTAN POTASSIUM 25 MG TABLET PO SCH (10:25)
[2023-02-22] MEDS: MULTIVITAMINS (DAILY MVI) TABLET (FP) PO SCH (10:25)
[2023-02-22] MEDS: APIXABAN 2.5 MG TABLET PO SCH ×2 (10:25→23:06)
[2023-02-22] MEDS: EZETIMIBE 10 MG TABLET (FP) PO SCH (10:25)
[2023-02-22] MEDS: COLLAGENASE CLOSTRIDIUM HIST. 30 GRAMS TUBE TP SCH (10:25)
[2023-02-22] MEDS: DONEPEZIL HCL 10 MG TABLET (FP) PO SCH (10:25)
[2023-02-22] MEDS: ASCORBIC ACID 250 MG TABLET (FP) PO SCH (10:25)
[2023-02-22] MEDS: metoPROLOL SUCCINATE 25 MG TAB.SR.24H (FP) PO SCH (10:25)
[2023-02-22] MEDS: MELATONIN 1 MG TABLET PO SCH (23:05)
[2023-02-23] MEDS: AMINO ACIDS/PROTEIN HYDROLYS 30 ML LIQUID.PKT PO SCH ×3 (08:40→16:37)
[2023-02-23 09:57] VITALS: RESP 16
[2023-02-23] MEDS: MULTIVITAMINS (DAILY MVI) TABLET (FP) PO SCH (10:03)
[2023-02-23] MEDS: LOSARTAN POTASSIUM 25 MG TABLET PO SCH (10:03)
[2023-02-23] MEDS: metoPROLOL SUCCINATE 25 MG TAB.SR.24H (FP) PO SCH (10:03)
[2023-02-23] MEDS: amLODIPine BESYLATE 5 MG TABLET (FP) PO SCH (10:03)
[2023-02-23] MEDS: APIXABAN 2.5 MG TABLET PO SCH (10:03)
[2023-02-23] MEDS: DONEPEZIL HCL 10 MG TABLET (FP) PO SCH (10:03)
[2023-02-23] MEDS: ASCORBIC ACID 250 MG TABLET (FP) PO SCH (10:03)
[2023-02-23] MEDS: EZETIMIBE 10 MG TABLET (FP) PO SCH (10:03)
[2023-02-23 13:10] VITALS: BP 120/62; PULSE 74; TEMP 98.2
[2023-02-23] MEDS: COLLAGENASE CLOSTRIDIUM HIST. 30 GRAMS TUBE TP SCH (15:18)
[2023-02-23] MEDS: fentaNYL 25mcg/hr PATCH.TD72 TD SCH (16:35)
== END 2023-02-23 18:13 | DRG 592 ==
LOC: JER 13:18 → JERBED 16:50 → J6S 21:18
PROVIDERS: ADMIT Internal Medicine; ATTEND Internal Medicine
DX: L97.228 Non-pressure chronic ulcer of left calf with other specified severity (principal); E43 Unspecified severe protein-calorie malnutrition; R53.2 Functional quadriplegia; R64 Cachexia; Z68.1 Body mass index [BMI] 19.9 or less, adult; L89.154 Pressure ulcer of sacral region, stage 4; L97.218 Non-pressure chronic ulcer of right calf with other specified severity; I73.89 Other specified peripheral vascular diseases; I10 Essential (primary) hypertension; E78.5 Hyperlipidemia, unspecified; F03.90 Unspecified dementia, unspecified severity, without behavioral disturbance, psychotic disturbance, mood disturbance, and anxiety; M24.59 Contracture, other specified joint; Z86.718 Personal history of other venous thrombosis and embolism; Z88.0 Allergy status to penicillin; Z71.89 Other specified counseling
CPT/HCPCS: 36415; 71045-TC-FY; 80053; 81003; 82962; 83735; 84100; 85025; 85610; 85730; 87040; 87070; 87077; 87086; 87186; 87205; 93005; 93010; 99285-25; C9803-CS; U0003; U0005